=== PATIENT | male | born 1950 | race Caucasian/White ===

== ENCOUNTER 2020-06-05 15:12 | Inpatient (IN) | payer MEDICARE, BC ==
[2020-06-05] MEDS ORDERED: ONDANSETRON HCL INJ/PF 4 MG/2 ML SDV IV ONE (15:35)
[2020-06-05] MEDS ORDERED: MORPHINE SULFATE 10 MG/ML INJ IV ONE (15:35)
--- NOTE | 2020-06-05 15:54 | ER Document Report ---
Entered by KIRIT RUDD SCRIBE 06/05/20 1533 Acting as scribe for:CALLUM OCHOA DO ED Hip Pain/Injury - General Chief Complaint: Hip Pain Stated Complaint: RIGHT HIP PAIN Time Seen by Provider: 06/05/20 15:21 Information source: Patient Notes: This 70-year-old male patient presents to the emergency department today with complaints of right hip pain resulting from a fall last night. Patient states that he was attempting to take a shower when he slipped and fell. Patient reports that the shower was recently cleaned and he thinks there was residue left over causing him to slip. Patient complains of right hip pain and his right lower extremity is shortened and externally rotated. Patient is on Eliquis and did hit his head. There was no loss of consciousness. - Related Data Allergies/Adverse Reactions: indomethacin [From Indocin] Allergy (Unknown, Verified 06/05/20 16:12) Past Medical History - General Information source: Patient - Social History Smoking Status: Former Smoker Cigarette use (# per day): No Frequency of alcohol use: None Drug Abuse: None Lives with: Family Family History: Reviewed & Not Pertinent - Past Medical History Cardiac Medical History: Reports: Hx Atrial Fibrillation, Hx Hypertension Review of Systems - Review of Systems Constitutional: See HPI, Other - fall EENT: No symptoms reported Cardiovascular: No symptoms reported Respiratory: No symptoms reported Gastrointestinal: No symptoms reported Genitourinary: No symptoms reported Male Genitourinary: No symptoms reported Musculoskeletal: See HPI, Joint pain - right hip Skin: No symptoms reported Hematologic/Lymphatic: No symptoms reported Neurological/Psychological: No symptoms reported -: Yes All other systems reviewed and negative Physical Exam - Vital signs Vitals: Temp Pulse Resp BP Pulse Ox 97.5 F 113 H 19 147/92 H 93 06/05/20 15:20 06/05/20 15:20 06/05/20 15:20 06/05/20 15:20 06/05/20 15:20 - Notes Notes: Physical Exam: General: Alert, appears uncomfortable. HEENT: Normocephalic. Right parietal hematoma. PERRL. Extraocular movements intact. Oropharynx clear. Neck: Supple. Non-tender. Respiratory: No respiratory distress. Clear and equal breath sounds bilaterally. Cardiovascular: Regular rate and rhythm. Abdominal: Obese. Non-tender. No distension. Normal Bowel Sounds. Back: No gross abnormalities. Extremities: Moves all four extremities. Upper extremities: Normal inspection. Normal ROM. Lower extremities: Right lower extremity is shortened and externally rotated. There is right hip tenderness with palpation. Neurological: Normal cognition. AAOx4. Normal speech. Psychological: Normal affect. Normal Mood. Skin: Warm. Dry. Normal color. Course - Re-evaluation Re-evalutation: 06/05/20 17:21 MDM 70 year old male fell at rental home last evening. Nondisplaced right intertrochanteric femur fracture. Also struck right parietal scalp and I have noted a small contusion to the scalp as a result. Due to that and the xarelto he takes for a fib and the likely tortuous and perhaps weak bridging veins he has a decision was made to obtain a noncontrast ct of his head to look for an occult injury such as a small sdh. He, thankfully, showed no acute abnormality on the ct. I have discussed the pt with Dr. Hong and the hospitalist team. Due to the comorbidities, the hospitalist team has been consulted to admit the pt. - Vital Signs Vital signs: Temp Pulse Resp BP Pulse Ox 97.5 F 113 H 19 147/92 H 93 06/05/20 15:20 06/05/20 15:20 06/05/20 15:20 06/05/20 15:20 06/05/20 15:20 - Laboratory Result Diagrams: 06/05/20 15:50 06/05/20 15:50 Laboratory results interpreted by me: 06/05/20 06/05/20 15:50 15:50 PT 18.1 H Glucose 156 H Total Bilirubin 2.6 H - Diagnostic Test Radiology reviewed: Image reviewed, Reports reviewed - EKG Interpretation by Me EKG shows normal: Sinus rhythm Rate: Normal Rhythm: NSR - NSR Nl [place] No st elevation or depression repolarization abnormality my interpretation. Discharge - Discharge Clinical Impression: Intertrochanteric fracture of right hip Qualifiers: Encounter type: initial encounter Fracture type: closed Fracture alignment: nondisplaced Qualified Code(s): S72.144A - Nondisplaced intertrochanteric fracture of right femur, initial encounter for closed fracture Atrial fibrillation Qualifiers: Atrial fibrillation type: unspecified Qualified Code(s): I48.91 - Unspecified atrial fibrillation Fall Qualifiers: Encounter type: initial encounter Qualified Code(s): W19.XXXA - Unspecified fall, initial encounter Contusion of scalp Qualifiers: Encounter type: initial encounter Qualified Code(s): S00.03XA - Contusion of scalp, initial encounter Condition: Stable Disposition: ADMITTED OBSERVATION Admitting Provider: [facility] (Hospitalist) Unit Admitted: Telemetry I personally performed the services described in the documentation, reviewed and edited the documentation which was dictated to the scribe in my presence, and it accurately records my words and actions.
--- NOTE | 2020-06-05 15:58 | RADIOLOGY REPORT (SQ) ---
EXAM DESCRIPTION: CHEST SINGLE VIEW IMAGES COMPLETED DATE/TIME: 06/05/2020 2:41 pm REASON FOR STUDY: pre op COMPARISON: None. EXAM PARAMETERS: NUMBER OF VIEWS: One view. TECHNIQUE: Single frontal radiographic view of the chest acquired. RADIATION DOSE: NA LIMITATIONS: None. FINDINGS: LUNGS AND PLEURA: There are patchy perihilar opacities and a small left pleural effusion. No pneumothorax. MEDIASTINUM AND HILAR STRUCTURES: No masses. Contour normal. HEART AND VASCULAR STRUCTURES: Moderate cardiomegaly. Moderate pulmonary edema. Postoperative barney es of prior CABG. BONES: No acute findings. HARDWARE: None in the chest. OTHER: No other significant finding. IMPRESSION: Moderate pulmonary edema. Small left effusion. TECHNICAL DOCUMENTATION: JOB ID: [id number] 2010 [employer]- All Rights Reserved Reading location - IP/workstation name: [email or web address]
--- NOTE | 2020-06-05 15:59 | RADIOLOGY REPORT (SQ) ---
EXAM DESCRIPTION: HIP RIGHT AP/LATERAL IMAGES COMPLETED DATE/TIME: 06/05/2020 2:41 pm REASON FOR STUDY: bed 1 s/p fall right hip tenderness COMPARISON: None. NUMBER OF VIEWS: Two views. TECHNIQUE: AP pelvis and additional frog-leg view of the right hip. LIMITATIONS: None. FINDINGS: MINERALIZATION: Normal. RIGHT HIP: No fracture or dislocation. No worrisome bone lesions. LEFT HIP: No fracture or dislocation. No worrisome bone lesions. PUBIS AND ISCHIUM: No fracture. PELVIS: No fracture. SACRUM: No fracture or dislocation. No worrisome bone lesions. LOWER LUMBAR SPINE: No fracture or dislocation. No worrisome bone lesions. There is degenerative dis c disease. SOFT TISSUES: No findings. OTHER: No other significant finding. IMPRESSION: No acute fracture or dislocation of the right hip or pelvis. TECHNICAL DOCUMENTATION: JOB ID: [id number] 2010 [employer]- All Rights Reserved Reading location - IP/workstation name: [email or web address]
[2020-06-05 16:19] LABS: ALBUMIN 3.8 g/dL (3.5-5.0); ALKALINE PHOSPHATASE 115 U/L (38-126); ANION GAP 8 (5-19); ASPARTATE AMINO TRANSFERASE 43 U/L (17-59); BILIRUBIN,DIRECT 0.3 mg/dL (0.0-0.4); BILIRUBIN,TOTAL 2.6 mg/dL (0.2-1.3); BLOOD UREA NITROGEN 20 mg/dL (7-20); CALCIUM 8.6 mg/dL (8.4-10.2); CARBON DIOXIDE 26 mmol/L (22-30); CHLORIDE 104 mmol/L (98-107); GLUCOSE 156 mg/dL (75-110); POTASSIUM 4.3 mmol/L (3.6-5.0); TOTAL PROTEIN 6.7 g/dL (6.3-8.2)
--- NOTE | 2020-06-05 16:44 | RADIOLOGY REPORT (SQ) ---
EXAM DESCRIPTION: CT HEAD WITHOUT IMAGES COMPLETED DATE/TIME: 06/05/2020 3:29 pm REASON FOR STUDY: fall/ injury/ Eliquis COMPARISON: None. TECHNIQUE: Axial images acquired through the brain without intravenous contrast. Images reviewed wi th bone, brain and subdural windows. Additional sagittal and coronal reconstructions were generated. Images stored on PACS. All CT scanners at this facility use dose modulation, iterative reconstruction, and/or weight based d osing when appropriate to reduce radiation dose to as low as reasonably achievable (ALARA). [facility]: Dose Right [facility]: CareDose [facility]: Dose Right [facility]: Teradose 4D [facility]: Smart [employer] RADIATION DOSE: CT Rad equipment meets quality standard of care and radiation dose reduction techniq ues were employed. CTDIvol: 53.2 mGy. DLP: 1070 mGy-cm. mGy. LIMITATIONS: None. FINDINGS: VENTRICLES: Normal size and contour. CEREBRUM: No masses. No hemorrhage. No midline shift. No evidence for acute infarction. Normal gra y/white matter differentiation. No areas of low density in the white matter. There is extensive intr acranial atherosclerosis. CEREBELLUM: No masses. No hemorrhage. No alteration of density. No evidence for acute infarction. EXTRAAXIAL SPACES: No fluid collections. No masses. ORBITS AND GLOBE: No intra- or extraconal masses. Normal contour of globe without masses. CALVARIUM: No fracture. PARANASAL SINUSES: No fluid or mucosal thickening. SOFT TISSUES: No mass or hematoma. OTHER: No other significant finding. IMPRESSION: 1. No acute intracranial hemorrhage, mass, or evidence of acute territorial infarct. 2. Extensive intracranial atherosclerosis. EVIDENCE OF ACUTE STROKE: NO. COMMENT: Quality ID # [id number]: Final reports with documentation of one or more dose reduction techniques (e.g., Automated exposure control, adjustment of the mA and/or kV according to patient size, use of iterative reconstruction technique) TECHNICAL DOCUMENTATION: JOB ID: [id number] 2010 [employer]- All Rights Reserved Reading location - IP/workstation name: [id number]
--- NOTE | 2020-06-05 16:50 | RADIOLOGY REPORT (SQ) ---
EXAM DESCRIPTION: CT PELVIS WITHOUT IMAGES COMPLETED DATE/TIME: 06/05/2020 3:29 pm REASON FOR STUDY: right hip pain COMPARISON: Right hip radiograph same date. TECHNIQUE: CT scan of the pelvis performed without intravenous or oral contrast. Images reviewed wi th soft tissue and bone windows. Reconstructed coronal and sagittal MPR images reviewed. All images stored on PACS. All CT scanners at this facility use dose modulation, iterative reconstruction, and/or weight based d osing when appropriate to reduce radiation dose to as low as reasonably achievable (ALARA). [facility]: Dose Right [facility]: CareDose [facility]: Dose Right [facility]: Teradose 4D [facility]: Smart [employer] RADIATION DOSE: CT Rad equipment meets quality standard of care and radiation dose reduction techniq ues were employed. CTDIvol: 24.7 mGy. DLP: 887 mGy-cm. mGy. LIMITATIONS: None. FINDINGS: PELVIC BONES: No acute fracture. Well demarcated sclerotic bone lesion in the left pubic symphysis probably a bone island. No suspicious bone lesions. . VISUALIZED SPINE: No acute findings. HIP(S): There is an acute nondisplaced intratrochanteric fracture of the right femur with mild displa cement of the greater trochanter. No significant angulation or displacement. Mild osteoarthritis bi lateral femoroacetabular joints. PELVIC SOFT TISSUES: Prostate gland is enlarged measuring 6.6 x 6 cm. No pelvic adenopathy. Colonic diverticulosis without evidence of diverticulitis. No free fluid in the pelvis. EXTRAPELVIC SOFT TISSUES: No significant findings. OTHER: No other significant finding. IMPRESSION: 1. Acute minimally displaced intratrochanteric fracture right femur. 2. Enlarged prostate gland. TECHNICAL DOCUMENTATION: JOB ID: [id number] Quality ID # [id number]: Final reports with documentation of one or more dose reduction techniques (e.g., Au tomated exposure control, adjustment of the mA and/or kV according to patient size, use of iterative reconstruction technique) 2010 [employer]- All Rights Reserved Reading location - IP/workstation name: [email or web address]
[2020-06-05 17:07] LABS: INTERNATIONAL RATION (INR) 1.48; PROTHROMBIN TIME 18.1 SEC (11.4-15.4)
[2020-06-05] MEDS ORDERED: ACETAMINOPHEN 325 MG TABLET PO PRN (17:57)
[2020-06-05 18:01] LABS: ABSOLUTE EOSINOPHILS # (AUTO) 0.2 10^3/uL (0.0-0.6); ABSOLUTE LYMPHOCYTES (AUTO) 0.7 10^3/uL (0.5-4.7); ABSOLUTE MONOCYTES (AUTO) 0.7 10^3/uL (0.1-1.4); ABSOLUTE NEUT (AUTO) 7.4 10^3/uL (1.7-8.2); BASOPHILS % (AUTO) 0.4 % (0-2); EOSINOPHILS % (AUTO) 1.8 % (0-6); HEMATOCRIT 41.8 % (37.9-51.0); HEMOGLOBIN 14.3 g/dL (13.5-17.0); MEAN CORPUSCULAR HEMOGLOBIN 32.9 pg (27.0-33.4); MEAN CORPUSCULAR HGB CONC 34.3 g/dL (32.0-36.0); MEAN CORPUSCULAR VOLUME 96 fl (80-97); MONOCYTES % (AUTO) 7.4 % (3-13); RED BLOOD COUNT 4.35 10^6/uL (4.35-5.55); RED CELL DISTRIBUTION WIDTH 15.9 % (11.5-14.0); SEGMENTED NEUTROPHILS % (AUTO) 82.4 % (42-78); TOTAL CELLS COUNTED % (AUTO) 100 %; WHITE BLOOD COUNT 8.9 10^3/uL (4.0-10.5)
[2020-06-05 18:31] LABS: PLATELET COUNT 70 10^3/uL (150-450)
[2020-06-05] MEDS: CEFAZOLIN 2 GM/D5W RTU 2 GM/50 ML RTUPB IV SCH (19:00)
--- NOTE | 2020-06-05 19:15 | EKG REPORT ---
SEVERITY:- ABNORMAL ECG - ATRIAL FIBRILLATION. LEFT POST. FASCICULAR BLOCK NONSPECIFIC LATERAL ST-T CHANGES. : Confirmed by: Jacob Wilson MD 05-Jun-2020 19:15:05
--- NOTE | 2020-06-05 19:37 | PDOC H&P ---
History of Present Illness Admission Date/PCP: 06/05/20 18:05 Patient complains of: Patient presents to the ED after falling in the early this morning with complaints of right hip pain History of Present Illness: LINDA HUSTON is a 70 year old male who is on vacation in the area. Early this morning the patient got out of bed to take a shower and while in the shower slipped and fell onto his right side hitting his head, right shoulder, and right hip. He denies any LOC. He states that he immediately noticed significant right hip pain which prevented him from being able to move for a period of several minutes. He ultimately crawled out of the shower and and notified his of his injury. With the help of his and several friends he was able to get up off of the floor. EMS was activated and the patient was brought to the ED where he underwent a CT of the head which revealed no acute intracranial process. Additionally, he underwent an x-ray of the hip/pelvis did not reveal an acute fracture or dislocation of the right hip or pelvis. Subsequently he underwent a CT of the pelvis which did reveal an acute minimally displaced intertrochanteric fracture of the right femur. A surgical consult was requested in the ED and the hospitalist team was consulted for admission. Past Medical History Cardiac Medical History: Reports: Atrial Fibrillation, Congestive Heart Failure, Hyperlipidema, Hypertension, Other - CAD, s/p CABG x4 in 2016 Pulmonary Medical History: Reports: Sleep Apnea - Patient uses CPAP EENT Medical History: Reports: None Neurological Medical History: Reports: None Endocrine Medical History: Reports: Obesity Renal/ Medical History: Reports: None Malignancy Medical History: Reports: Renal (Kidney) Cancer - S/p left nephrectomy GI Medical History: Reports: None Musculoskeltal Medical History: Reports: Gout Psychiatric Medical History: Reports: Depression Traumatic Medical History: Reports: Other - Traumatic right hip fracture this hospitalization Hematology: Reports: None Infectious Medical History: Reports: None Past Surgical History Past Surgical History: Reports: Appendectomy, Coronary Artery Bypass Graft, Other - Left nephrectomy Social History Lives with: Family Smoking Status: Former Smoker Electronic Cigarette use?: No Frequency of Alcohol Use: None Hx Recreational Drug Use: No Drugs: None Hx Prescription Drug Abuse: No - Advance Directive Resuscitation Status: Full Code Family History Family History: Reviewed & Not Pertinent Parental Family History Reviewed: Yes Children Family History Reviewed: Yes Sibling(s) Family History Reviewed.: Yes Medication/Allergy Allergies/Adverse Reactions: indomethacin [From Indocin] Allergy (Unknown, Verified 06/05/20 16:12) Review of Systems Constitutional: ABSENT: anorexia, chills, fatigue, fever(s), headache(s), night sweats, weakness, weight loss Eyes: ABSENT: visual disturbances Ears: ABSENT: hearing changes Nose, Mouth, and Throat: ABSENT: headache(s), mouth pain, sore throat, vertigo Cardiovascular: ABSENT: chest pain, dyspnea on exertion, edema, orthropnea, pa lpitations Respiratory: ABSENT: cough, dyspnea, hemoptysis, sputum Gastrointestinal: ABSENT: abdominal pain, coffee ground emesis, constipation, diarrhea, dysphagia, heartburn, hematemesis, hematochezia, melena, nausea, vomiting Genitourinary: ABSENT: difficulty urinating, dysuria, hematuria Musculoskeletal: PRESENT: other - Right shoulder with 2 cm x 2 cm ecchymotic area. Right hip pain. ABSENT: back pain, muscle weakness Integumentary: ABSENT: diaphoresis, lesions, pruritus, rash Neurological: PRESENT: numbness - Patient reports intermittent numbness of the right fingers. ABSENT: abnormal gait, abnormal movements, abnormal speech, confusion, focal weakness, frequent falls, lack of coordination, memory loss, syncope, tremor(s), vertigo, weakness Psychiatric: PRESENT: depression Endocrine: ABSENT: cold intolerance, heat intolerance, polydipsia, polyphagia, polyuria Hematologic/Lymphatic: ABSENT: easy bleeding, easy bruising Physical Exam Vital Signs: Temp Pulse Resp BP Pulse Ox 97.5 F 113 H 19 147/92 H 93 06/05/20 15:20 06/05/20 15:20 06/05/20 15:20 06/05/20 15:20 06/05/20 15:20 Intake & Output 06/04/20 06/05/20 06/06/20 06:59 06:59 06:59 Weight 120 kg General appearance: PRESENT: no acute distress, cooperative, obese, well- developed, well-nourished Head exam: PRESENT: atraumatic, normocephalic Eye exam: PRESENT: conjunctiva pink, EOMI, PERRLA. ABSENT: periorbital swell ing, scleral icterus Ear exam: ABSENT: bleeding, drainage Mouth exam: PRESENT: moist, tongue midline Neck exam: ABSENT: carotid bruit, JVD, thyromegaly, tracheal deviation Respiratory exam: PRESENT: clear to auscultation matthew, symmetrical, unlabored. ABSENT: accessory muscle use, chest wall tenderness Cardiovascular exam: PRESENT: irregular rhythm, +S1, +S2. ABSENT: rubs Pulses: PRESENT: normal radial pulses, +2 pedal pulses bilateral Vascular exam: PRESENT: normal capillary refill GI/Abdominal exam: PRESENT: normal bowel sounds, soft. ABSENT: tenderness Rectal exam: PRESENT: deferred Extremities exam: PRESENT: joint swelling, other - Right hip with minimal edema. ABSENT: calf tenderness Neurological exam: PRESENT: alert, awake, oriented to person, oriented to place, oriented to time, oriented to situation, CN II-XII grossly intact Skin exam: PRESENT: intact, normal color, warm Results Laboratory Results: 06/05/20 17:53 06/05/20 15:50 06/05/20 06/05/20 06/05/20 15:50 15:50 16:47 WBC Cancelled Cancelled RBC Cancelled Cancelled Hgb Cancelled Cancelled Hct Cancelled Cancelled MCV Cancelled Cancelled MCH Cancelled Cancelled MCHC Cancelled Cancelled RDW Cancelled Cancelled Plt Count Cancelled Cancelled Seg Neutrophils % Cancelled Cancelled Sodium 137.6 Potassium 4.3 Chloride 104 Carbon Dioxide 26 Anion Gap 8 BUN 20 Creatinine 1.03 Est GFR ( Amer) > 60 Glucose 156 H Calcium 8.6 Total Bilirubin 2.6 H AST 43 Alkaline Phosphatase 115 Total Protein 6.7 Albumin 3.8 06/05/20 17:53 WBC 8.9 RBC 4.35 Hgb 14.3 Hct 41.8 MCV 96 MCH 32.9 MCHC 34.3 RDW 15.9 H Plt Count 70 L Seg Neutrophils % 82.4 H Sodium Potassium Chloride Carbon Dioxide Anion Gap BUN Creatinine Est GFR ( Amer) Glucose Calcium Total Bilirubin AST Alkaline Phosphatase Total Protein Albumin Impressions: Hip/Pelvis X-Ray 06/05/20 00:00 IMPRESSION: No acute fracture or dislocation of the right hip or pelvis. Chest X-Ray 06/05/20 15:33 IMPRESSION: Moderate pulmonary edema. Small left effusion. Head CT 06/05/20 15:34 IMPRESSION: 1. No acute intracranial hemorrhage, mass, or evidence of acute territorial infarct. 2. Extensive intracranial atherosclerosis. EVIDENCE OF ACUTE STROKE: NO. Pelvis CT 06/05/20 16:00 IMPRESSION: 1. Acute minimally displaced intratrochanteric fracture right femur. 2. Enlarged prostate gland. Assessment and Plan - Diagnosis (1) Intertrochanteric fracture of right femur Qualifiers: Encounter type: initial encounter Fracture type: closed Fracture alignment: nondisplaced Qualified Code(s): S72.144A - Nondisplaced intertrochanteric fracture of right femur, initial encounter for closed fracture Is this a current diagnosis for this admission?: Yes Plan: Surgery consulted, plan for OR in a.m. (2) CAD (coronary artery disease) Is this a current diagnosis for this admission?: Yes Plan: Patient s/p CABG x4 in 2016 Denies chest pain Continue ASA 81 mg p.o. daily (3) HTN (hypertension) Is this a current diagnosis for this admission?: Yes Plan: Adequate BP control Continue amlodipine 5 mg p.o. daily Continue metoprolol tartrate 50 mg p.o. twice daily Continue losartan 50 mg p.o. twice daily Patient takes prazosin 2 mg p.o. twice daily which is nonformulary, will hold off a livia at this time Continue furosemide 40 mg daily Continue potassium chloride 20 mEq p.o. daily (4) Dyslipidemia Is this a current diagnosis for this admission?: Yes Plan: Continue atorvastatin 10 mg p.o. daily (5) HOWARD (obstructive sleep apnea) Is this a current diagnosis for this admission?: Yes Plan: Patient uses CPAP at at bedtime Continue CPAP with patient's home settings (6) Gout Is this a current diagnosis for this admission?: Yes Plan: Continue allopurinol 300 mg p.o. twice daily (7) Depression Is this a current diagnosis for this admission?: Yes Plan: Continue escitalopram 20 mg p.o. daily - Plan Summary Summary: Patient is admitted to the hospitalist service with a consult to orthopedic surgery. He is scheduled to go to the OR on the morning of 06/06/2020. Pharmacy has not completed a med reconciliation however, I have reviewed the patient's medication list with both he and his and have continued his chronic medications with the exception of his apixaban which is being held in preparation for surgery. - Time Time Spent with patient: 35 or more minutes Medications reviewed and adjusted accordingly: Yes Anticipated discharge: Home
--- NOTE | 2020-06-05 20:25 | RADIOLOGY REPORT (SQ) ---
EXAM DESCRIPTION: XR SHOULDER 2 OR MORE VIEWS COMPLETED DATE/TME: 06/05/2020 00:00 CLINICAL HISTORY: 70 years Male Fall with trauma COMPARISON: None. TECHNIQUE: RIGHT shoulder three view FINDINGS: Bony demineralization. Degenerative changes at the glenohumeral joint. No acute fractures or dislocations identified. No osseous destructive lesions. Acromioclavicular joint appears maintained. IMPRESSION: No acute fracture or dislocation identified.
[2020-06-05 20:39] LABS: APPEARANCE,URINE CLEAR; BILIRUBIN,URINE NEGATIVE (NEGATIVE); COLOR,URINE DARK YELLOW; GLUCOSE, URINE NEGATIVE (NEGATIVE); KETONES,URINE NEGATIVE (NEGATIVE); LEUKOCYTE ESTERASE,URINE NEGATIVE (NEGATIVE); NITRITE,URINE NEGATIVE (NEGATIVE); PROTEIN,URINE 100 mg/dL (NEGATIVE); URINE SPECIFIC GRAVITY 1.024
--- NOTE | 2020-06-05 21:13 | EKG REPORT ---
SEVERITY:- ABNORMAL ECG - ATRIAL FIBRILLATION NONSPECIFIC T ABNORMALITIES, ANT-LAT LEADS BORDERLINE PROLONGED QT INTERVAL : Confirmed by: Jacob Wilson MD 05-Jun-2020 21:12:20
[2020-06-05] MEDS: LOSARTAN POTASSIUM 50 MG TABLET PO SCH (21:55)
[2020-06-05] MEDS: ATORVASTATIN CALCIUM 10 MG TABLET PO SCH (21:55)
[2020-06-05] MEDS: METOPROLOL TARTRATE 50 MG TABLET PO SCH (21:55)
[2020-06-06] MEDS: CEFAZOLIN 2 GM/D5W RTU 2 GM/50 ML RTUPB IV SCH ×2 (01:22→05:28)
[2020-06-06] MEDS: PANTOPRAZOLE SODIUM 40 MG TABLET.DR PO SCH (05:28)
[2020-06-06 06:53] LABS: ABSOLUTE BASOPHILS # (AUTO) 0.1 10^3/uL (0.0-0.2); ABSOLUTE EOSINOPHILS # (AUTO) 0.5 10^3/uL (0.0-0.6); ABSOLUTE LYMPHOCYTES (AUTO) 0.9 10^3/uL (0.5-4.7); ABSOLUTE MONOCYTES (AUTO) 0.6 10^3/uL (0.1-1.4); ABSOLUTE NEUT (AUTO) 7.7 10^3/uL (1.7-8.2); BASOPHILS % (AUTO) 0.7 % (0-2); EOSINOPHILS % (AUTO) 5.1 % (0-6); HEMATOCRIT 43.5 % (37.9-51.0); HEMOGLOBIN 14.7 g/dL (13.5-17.0); MEAN CORPUSCULAR HEMOGLOBIN 32.8 pg (27.0-33.4); MEAN CORPUSCULAR HGB CONC 33.8 g/dL (32.0-36.0); MEAN CORPUSCULAR VOLUME 97 fl (80-97); MONOCYTES % (AUTO) 6.1 % (3-13); RED BLOOD COUNT 4.48 10^6/uL (4.35-5.55); RED CELL DISTRIBUTION WIDTH 15.9 % (11.5-14.0); SEGMENTED NEUTROPHILS % (AUTO) 79.1 % (42-78); TOTAL CELLS COUNTED % (AUTO) 100 %; WHITE BLOOD COUNT 9.8 10^3/uL (4.0-10.5)
[2020-06-06 06:55] LABS: INTERNATIONAL RATION (INR) 1.33; PROTHROMBIN TIME 16.6 SEC (11.4-15.4)
[2020-06-06 06:56] LABS: PARTIAL THROMBOPLASTIN TIME 31.7 SEC (23.5-35.8)
[2020-06-06 07:15] LABS: ANION GAP 6 (5-19); BLOOD UREA NITROGEN 23 mg/dL (7-20); CALCIUM 8.6 mg/dL (8.4-10.2); CARBON DIOXIDE 28 mmol/L (22-30); CHLORIDE 105 mmol/L (98-107); GLUCOSE 127 mg/dL (75-110)
[2020-06-06 07:41] LABS: PLATELET COUNT 78 10^3/uL (150-450)
[2020-06-06] MEDS: CEFAZOLIN SODIUM 2 GM in DEXTROSE 5%-WATER 100 ML IV SCH ×3 (09:39→21:59)
[2020-06-06] MEDS ORDERED: FUROSEMIDE 40 MG TABLET PO SCH (10:00)
[2020-06-06] MEDS ORDERED: FUROSEMIDE INJ/PF 40 MG/4 ML SDV IV ONE (10:50)
--- NOTE | 2020-06-06 10:54 | PDOC PROGRESS REPORT ---
Subjective Progress Note for:: 06/06/20 Subjective:: No complaints. Patient remains on CPAP this a.m. Reason For Visit: RIGHT HIP FRACTURE Physical Exam Vital Signs: Temp Pulse Resp BP Pulse Ox 97.7 F 55 L 5 L 143/82 H 90 L 06/06/20 08:24 06/06/20 08:24 06/06/20 09:13 06/06/20 08:24 06/06/20 09:13 Intake & Output 06/05/20 06/06/20 06/07/20 06:59 06:59 06:59 Output Total 550 Balance -550 Weight 126.2 kg General appearance: PRESENT: no acute distress, cooperative, well-developed, well-nourished Head exam: PRESENT: atraumatic, normocephalic Eye exam: PRESENT: conjunctiva pink Mouth exam: PRESENT: moist, tongue midline Neck exam: ABSENT: JVD Respiratory exam: PRESENT: clear to auscultation matthew, symmetrical, unlabored. ABSENT: accessory muscle use, rales Cardiovascular exam: PRESENT: irregular rhythm, +S1, +S2 Pulses: PRESENT: normal carotid pulses, normal radial pulses GI/Abdominal exam: PRESENT: normal bowel sounds, soft. ABSENT: distended, tend erness Rectal exam: PRESENT: deferred Extremities exam: PRESENT: full ROM, other - Trace pretibial edema bilaterally Musculoskeletal exam: PRESENT: full ROM Neurological exam: PRESENT: alert, awake, oriented to person, oriented to place, oriented to time, oriented to situation, CN II-XII grossly intact Psychiatric exam: PRESENT: appropriate affect, normal mood. ABSENT: agitated, anxious Skin exam: PRESENT: dry, normal color, warm Results Laboratory Results: 06/06/20 06:19 06/06/20 06:19 06/05/20 06/05/20 06/05/20 15:50 15:50 16:47 WBC Cancelled Cancelled RBC Cancelled Cancelled Hgb Cancelled Cancelled Hct Cancelled Cancelled MCV Cancelled Cancelled MCH Cancelled Cancelled MCHC Cancelled Cancelled RDW Cancelled Cancelled Plt Count Cancelled Cancelled Seg Neutrophils % Cancelled Cancelled Sodium 137.6 Potassium 4.3 Chloride 104 Carbon Dioxide 26 Anion Gap 8 BUN 20 Creatinine 1.03 Est GFR ( Amer) > 60 Glucose 156 H Calcium 8.6 Total Bilirubin 2.6 H AST 43 Alkaline Phosphatase 115 Total Protein 6.7 Albumin 3.8 Urine Color Urine Appearance Urine pH Ur Specific [place] Urine Protein Urine Glucose (UA) Urine Ketones Urine Blood Urine Nitrite Ur Leukocyte Esterase Urine WBC (Auto) Urine RBC (Auto) 06/05/20 06/05/20 06/06/20 17:53 20:24 06:19 WBC 8.9 RBC 4.35 Hgb 14.3 Hct 41.8 MCV 96 MCH 32.9 MCHC 34.3 RDW 15.9 H Plt Count 70 L Seg Neutrophils % 82.4 H Sodium 139.4 Potassium 4.0 Chloride 105 Carbon Dioxide 28 Anion Gap 6 BUN 23 H Creatinine 1.04 Est GFR ( Amer) > 60 Glucose 127 H Calcium 8.6 Total Bilirubin AST Alkaline Phosphatase Total Protein Albumin Urine Color DARK YELLOW Urine Appearance CLEAR Urine pH 5.0 Ur Specific [place] 1.024 Urine Protein 100 H Urine Glucose (UA) NEGATIVE Urine Ketones NEGATIVE Urine Blood NEGATIVE Urine Nitrite NEGATIVE Ur Leukocyte Esterase NEGATIVE Urine WBC (Auto) 0 Urine RBC (Auto) 1 06/06/20 06:19 WBC 9.8 RBC 4.48 Hgb 14.7 Hct 43.5 MCV 97 MCH 32.8 MCHC 33.8 RDW 15.9 H Plt Count 78 L Seg Neutrophils % 79.1 H Sodium Potassium Chloride Carbon Dioxide Anion Gap BUN Creatinine Est GFR ( Amer) Glucose Calcium Total Bilirubin AST Alkaline Phosphatase Total Protein Albumin Urine Color Urine Appearance Urine pH Ur Specific [place] Urine Protein Urine Glucose (UA) Urine Ketones Urine Blood Urine Nitrite Ur Leukocyte Esterase Urine WBC (Auto) Urine RBC (Auto) Impressions: Hip/Pelvis X-Ray 06/05/20 00:00 IMPRESSION: No acute fracture or dislocation of the right hip or pelvis. Shoulder X-Ray 06/05/20 00:00 IMPRESSION: No acute fracture or dislocation identified. Chest X-Ray 06/05/20 15:33 IMPRESSION: Moderate pulmonary edema. Small left effusion. Head CT 06/05/20 15:34 IMPRESSION: 1. No acute intracranial hemorrhage, mass, or evidence of acute territorial infarct. 2. Extensive intracranial atherosclerosis. EVIDENCE OF ACUTE STROKE: NO. Pelvis CT 06/05/20 16:00 IMPRESSION: 1. Acute minimally displaced intratrochanteric fracture right femur. 2. Enlarged prostate gland. Assessment and Plan - Diagnosis (1) Intertrochanteric fracture of right femur Qualifiers: Encounter type: initial encounter Fracture type: closed Fracture alignment: nondisplaced Qualified Code(s): S72.144A - Nondisplaced intertrochanteric fracture of right femur, initial encounter for closed fracture Is this a current diagnosis for this admission?: Yes Plan: Surgery on hold at this time, anesthesia feels that patient needs to be tuned up prior to going to the OR Allow patient to eat (2) CAD (coronary artery disease) Is this a current diagnosis for this admission?: Yes Plan: Patient s/p CABG x4 in 2015 Denies chest pain Continue ASA 81 mg p.o. daily Check echocardiogram, if abnormal will request cardiology consultation (3) Pulmonary edema Qualifiers: Chronicity: acute Qualified Code(s): J81.0 - Acute pulmonary edema Is this a current diagnosis for this admission?: Yes Plan: CXR from 06/05/1960 reveals pulmonary edema Repeat CXR now Check BNP Check echocardiogram Change Lasix to IV (40 mg daily) Continue potassium chloride 20 mEq p.o. daily (4) HTN (hypertension) Is this a current diagnosis for this admission?: Yes Plan: Adequate BP control Continue amlodipine 5 mg p.o. daily Continue metoprolol tartrate 50 mg p.o. twice daily Continue losartan 50 mg p.o. twice daily Patient takes prazosin 2 mg p.o. twice daily which is nonformulary, will hold off a livia at this time (5) Dyslipidemia Is this a current diagnosis for this admission?: Yes Plan: Continue atorvastatin 10 mg p.o. daily (6) HOWARD (obstructive sleep apnea) Is this a current diagnosis for this admission?: Yes Plan: Patient uses CPAP at at bedtime Continue CPAP with patient's home settings (7) Gout Is this a current diagnosis for this admission?: Yes Plan: Continue allopurinol 300 mg p.o. twice daily (8) Depression Is this a current diagnosis for this admission?: Yes Plan: Continue escitalopram 20 mg p.o. daily - Time Time Spent with patient: 25-34 minutes Anticipated discharge: Home
[2020-06-06] MEDS: ALLOPURINOL 300 MG TABLET PO SCH ×2 (12:05→19:04)
[2020-06-06] MEDS: POTASSIUM CHLORIDE 10 MEQ TABLET.ER PO SCH (12:08)
[2020-06-06] MEDS: ASPIRIN 81 MG TABLET, ENT COATED PO SCH (12:08)
[2020-06-06] MEDS: METOPROLOL TARTRATE 50 MG TABLET PO SCH ×2 (12:09→22:00)
[2020-06-06] MEDS: ESCITALOPRAM OXALATE 10 MG TABLET PO SCH (12:09)
[2020-06-06] MEDS: FERROUS SULFATE 325 MG TABLET PO SCH (12:09)
[2020-06-06] MEDS: AMLODIPINE BESYLATE 5 MG TABLET PO SCH (12:09)
[2020-06-06] MEDS: LOSARTAN POTASSIUM 50 MG TABLET PO SCH ×2 (12:09→21:59)
[2020-06-06] MEDS: DOCUSATE SODIUM 100 MG CAPSULE PO SCH (12:10)
--- NOTE | 2020-06-06 12:14 | RADIOLOGY REPORT (SQ) ---
EXAM DESCRIPTION: CHEST SINGLE VIEW IMAGES COMPLETED DATE/TIME: 06/06/2020 12:02 pm REASON FOR STUDY: Pulmonary edema COMPARISON: 06/05/2020 EXAM PARAMETERS: NUMBER OF VIEWS: One view. TECHNIQUE: Single frontal radiographic view of the chest acquired. RADIATION DOSE: NA LIMITATIONS: None. FINDINGS: LUNGS AND PLEURA: Persistent left pleural effusion with left basilar airspace disease. Ov erall aeration is improved. MEDIASTINUM AND HILAR STRUCTURES: No masses. Contour normal. HEART AND VASCULAR STRUCTURES: Heart remains enlarged. No overt failure. BONES: No acute findings. HARDWARE: Sternotomy wires are in place. OTHER: No other significant finding. IMPRESSION: Cardiomegaly. Small left effusion. Vascular congestion has largely resolved. Minimal airspace disease in the left base most likely represents atelectasis. TECHNICAL DOCUMENTATION: JOB ID: [id number] 2010 [employer]- All Rights Reserved Reading location - IP/workstation name: [email or web address]
--- NOTE | 2020-06-06 15:50 | PDOC CONSULTATION ---
Consultation Consult Date: 06/06/20 Provider Consulted: VIKA BARONE JR History of Present Illness Admission Date/PCP: 06/05/20 18:05 History of Present Illness: LINDA HUSTON is a 70 year old male who presents after recent fall at home. He denies presyncopal episode, denies lightheadedness or pain beforehand. He re ports pain after slipping at home in the shower on a slippery floor landing on his right hip sustaining an injury that prevented him from the ability to bear weight. He denies associated injury. Reports pain is localized to the right groin and thigh and constant at rest. Improved with pain medications. Described as aching 7 out of 10. No knee pain right lower extremity weakness or other associated symptom at this time. Past Medical History Cardiac Medical History: Reports: Atrial Fibrillation, Congestive Heart Failure, Hyperlipidema, Hypertension, Other - CAD, s/p CABG x4 in 2016 Pulmonary Medical History: Reports: Sleep Apnea - Patient uses CPAP EENT Medical History: Reports: None Neurological Medical History: Reports: None Endocrine Medical History: Reports: Obesity Renal/ Medical History: Reports: None Malignancy Medical History: Reports: Renal (Kidney) Cancer - S/p left nephrectomy GI Medical History: Reports: None Musculoskeltal Medical History: Reports: Gout Psychiatric Medical History: Reports: Depression Traumatic Medical History: Reports: Other - Traumatic right hip fracture this hospitalization Hematology: Reports: None Infectious Medical History: Reports: None Past Surgical History Past Surgical History: Reports: Appendectomy, Coronary Artery Bypass Graft, Other - Left nephrectomy Social History Lives with: Family Smoking Status: Never Smoker Electronic Cigarette use?: No Frequency of Alcohol Use: None Hx Recreational Drug Use: No Drugs: None Hx Prescription Drug Abuse: No - Advance Directive Resuscitation Status: Full Code Family History Family History: Reviewed & Not Pertinent Parental Family History Reviewed: No Children Family History Reviewed: NA Sibling(s) Family History Reviewed.: NA Medication/Allergy Home Medications: Allopurinol [Zyloprim 300 mg Tablet] 300 mg PO BID 06/06/20 Amlodipine Besylate [Norvasc 5 mg Tablet] 5 mg PO QPM 06/06/20 Apixaban [Eliquis 5 mg Tablet] 5 mg PO Q12 06/06/20 Aspirin [Adult Low Dose Aspirin EC] 81 mg PO DAILY 06/06/20 Atorvastatin Calcium [Lipitor 10 mg Tablet] 10 mg PO QPM 06/06/20 Escitalopram Oxalate [Lexapro 10 mg Tablet] 20 mg PO DAILY 06/06/20 Ferrous Sulfate [Feosol 325 mg Tablet] 325 mg PO DAILY 06/06/20 Furosemide [Lasix 40 mg Tablet] 40 mg PO DAILY 06/06/20 Lansoprazole [Prevacid 30 mg Odt Tablet] 30 mg PO Q6AM 06/06/20 Losartan Potassium [Cozaar 50 mg Tablet] 50 mg PO Q12 06/06/20 Metoprolol Succinate [Toprol Xl 50 mg Tab.sr] 50 mg PO QAM 06/06/20 Potassium Chloride [Klor-Con 10 Meq Tablet ER] 20 meq PO QAM 06/06/20 Prazosin HCl [Minipress] 2 mg PO BID 06/06/20 Allergies/Adverse Reactions: indomethacin [From Indocin] Allergy (Unknown, Verified 06/05/20 16:12) Review of Systems Review of Systems: Constitutional: ABSENT: anorexia, chills, night sweats Cardiovascular: ABSENT: chest pain Respiratory: ABSENT: dyspnea Gastrointestinal: ABSENT: vomiting Genitourinary: ABSENT: dysuria Integumentary: ABSENT: rash Neurological: ABSENT: confusion, memory loss, numbness Psychiatric: ABSENT: hallucinations Hematologic/Lymphatic: ABSENT: easy bleeding Physical Exam Vital Signs: Temp Pulse Resp BP Pulse Ox 97.7 F 55 L 5 L 143/82 H 90 L 06/06/20 08:24 06/06/20 08:24 06/06/20 09:13 06/06/20 08:24 06/06/20 09:13 Intake & Output 06/05/20 06/06/20 06/07/20 06:59 06:59 06:59 Output Total 550 Balance -550 Weight 126.2 kg Physical Exam: General appearance: PRESENT: no acute distress, cooperative, well-nourished Head exam: PRESENT: atraumatic, normocephalic Eye exam: PRESENT: EOMI Ear exam: PRESENT: normal external ear exam Mouth exam: PRESENT: neck supple Neck exam: ABSENT: tracheal deviation Respiratory exam: PRESENT: symmetrical, unlabored. ABSENT: accessory muscle use, wheezes Pulses: PRESENT: normal radial pulses, normal dorsalis pedis pulse Vascular exam: PRESENT: normal capillary refill GI/Abdominal exam: ABSENT: distended, firm Extremities exam: PRESENT: full ROM of bilateral shoulders, elbows wrists, knees, hips and ankles without pain Musculoskeletal exam: PRESENT: full ROM, normal inspection of all 4 extremities aside from that noted below. Neurological exam: PRESENT: alert, awake, oriented to person, oriented to place, oriented to time Psychiatric exam: PRESENT: appropriate affect. ABSENT: agitated Focused psych exam: ABSENT: catatonic Skin exam: PRESENT: intact. ABSENT: dry All as above aside from that noted in the HPI and the following: Right lower extremity -Pulses 2+ distally -Compartments soft -Sensation grossly intact to L3-4-5 S1 -Motor grossly intact to EHL TA gastroc and quad -Right lower extremity shortened externally rotated -Skin intact Results Laboratory Results: 06/06/20 06:19 06/06/20 06:19 06/05/20 06/05/20 06/05/20 15:50 15:50 16:47 WBC Cancelled Cancelled RBC Cancelled Cancelled Hgb Cancelled Cancelled Hct Cancelled Cancelled MCV Cancelled Cancelled MCH Cancelled Cancelled MCHC Cancelled Cancelled RDW Cancelled Cancelled Plt Count Cancelled Cancelled Seg Neutrophils % Cancelled Cancelled Sodium 137.6 Potassium 4.3 Chloride 104 Carbon Dioxide 26 Anion Gap 8 BUN 20 Creatinine 1.03 Est GFR ( Amer) > 60 Glucose 156 H Calcium 8.6 Total Bilirubin 2.6 H AST 43 Alkaline Phosphatase 115 Total Protein 6.7 Albumin 3.8 Urine Color Urine Appearance Urine pH Ur Specific [place] Urine Protein Urine Glucose (UA) Urine Ketones Urine Blood Urine Nitrite Ur Leukocyte Esterase Urine WBC (Auto) Urine RBC (Auto) 06/05/20 06/05/20 06/06/20 17:53 20:24 06:19 WBC 8.9 RBC 4.35 Hgb 14.3 Hct 41.8 MCV 96 MCH 32.9 MCHC 34.3 RDW 15.9 H Plt Count 70 L Seg Neutrophils % 82.4 H Sodium 139.4 Potassium 4.0 Chloride 105 Carbon Dioxide 28 Anion Gap 6 BUN 23 H Creatinine 1.04 Est GFR ( Amer) > 60 Glucose 127 H Calcium 8.6 Total Bilirubin AST Alkaline Phosphatase Total Protein Albumin Urine Color DARK YELLOW Urine Appearance CLEAR Urine pH 5.0 Ur Specific [place] 1.024 Urine Protein 100 H Urine Glucose (UA) NEGATIVE Urine Ketones NEGATIVE Urine Blood NEGATIVE Urine Nitrite NEGATIVE Ur Leukocyte Esterase NEGATIVE Urine WBC (Auto) 0 Urine RBC (Auto) 1 06/06/20 06:19 WBC 9.8 RBC 4.48 Hgb 14.7 Hct 43.5 MCV 97 MCH 32.8 MCHC 33.8 RDW 15.9 H Plt Count 78 L Seg Neutrophils % 79.1 H Sodium Potassium Chloride Carbon Dioxide Anion Gap BUN Creatinine Est GFR ( Amer) Glucose Calcium Total Bilirubin AST Alkaline Phosphatase Total Protein Albumin Urine Color Urine Appearance Urine pH Ur Specific [place] Urine Protein Urine Glucose (UA) Urine Ketones Urine Blood Urine Nitrite Ur Leukocyte Esterase Urine WBC (Auto) Urine RBC (Auto) 06/06/20 06:19 NT-Pro-B Natriuret Pep 836 H Impressions: Hip/Pelvis X-Ray 06/05/20 00:00 IMPRESSION: No acute fracture or dislocation of the right hip or pelvis. Shoulder X-Ray 06/05/20 00:00 IMPRESSION: No acute fracture or dislocation identified. Head CT 06/05/20 15:34 IMPRESSION: 1. No acute intracranial hemorrhage, mass, or evidence of acute territorial infarct. 2. Extensive intracranial atherosclerosis. EVIDENCE OF ACUTE STROKE: NO. Pelvis CT 06/05/20 16:00 IMPRESSION: 1. Acute minimally displaced intratrochanteric fracture right femur. 2. Enlarged prostate gland. Chest X-Ray 06/06/20 00:00 IMPRESSION: Cardiomegaly. Small left effusion. Vascular congestion has largely resolved. Minimal airspace disease in the left base most likely represents atelectasis. Assessment & Plan - Diagnosis (1) Intertrochanteric fracture of right femur Qualifiers: Encounter type: initial encounter Fracture type: closed Fracture alignment: nondisplaced Qualified Code(s): S72.144A - Nondisplaced intertro chanteric fracture of right femur, initial encounter for closed fracture Is this a current diagnosis for this admission?: Yes Plan: -Patient is currently being worked up for cardiac clearance, echo pending. -Pending clearance the patient is on the schedule for tomorrow for surgery. I have discussed risks and benefits with the patient and he has signed informed consent. -Ancef on-call for the OR -We will give TXA pre-and postop -Hold all chemical DVT prophylaxis at 12:00 midnight tonight -N.p.o. at midnight tonight -Bedrest, consider Cano catheter per patient comfort -Following surgery patient will be made weightbearing as tolerated to encourage out of bed as early as possible
[2020-06-06 18:24] LABS: ANION GAP 6 (5-19); BLOOD UREA NITROGEN 23 mg/dL (7-20); CALCIUM 8.5 mg/dL (8.4-10.2); CARBON DIOXIDE 28 mmol/L (22-30); CHLORIDE 101 mmol/L (98-107); GLUCOSE 165 mg/dL (75-110); POTASSIUM 4.1 mmol/L (3.6-5.0)
--- NOTE | 2020-06-06 18:48 | XCELERA REPORT ---
[address] [address] Transthoracic Echocardiogram Report Name: LINDA HUSTON Age: 70 yrs Gender: Male : 1950 Patient Status: Inpatient Patient Location: [address] [place], [place] [address]A Study Date: 06/06/2020 04:34 PM History: Pulmonary Edema Height: 73 in Weight: 278 lb BSA: 2.5 m2 Procedure: A complete two-dimensional transthoracic echocardiogram was performed (2D, M-mode, spectral and color flow Doppler). The study was technically adequate with some images being suboptimal in quality. Reason For Study: Pulmonary edema Previous Evaluation: No previous studies were available. History: Shortness of breath. CHF. Ordering Physician: DEBORAH REDDING Performed By: Ana Dorman Interpretation Summary Left ventricular systolic function is low normal. Due to the poor quality of the echocardiogram, an assessment of left ventricular ejection fraction cannot be made. Best estimate is 50-55%. The right ventricular systolic function is mild to moderately reduced. There is a trace amount of mitral regurgitation There is no aortic valve stenosis There is a trace amount of tricuspid regurgitation There is mild to moderate pulmonary hypertension by echo There is no pericardial effusion. MMode/2D Measurements & Calculations RVDd: 5.2 cm LVIDd: 5.7 cm FS: 43.4 % Ao root diam: 3.9 cm IVSd: 1.1 cm LVIDs: 3.2 cm EDV(Teich): 158.3 ml Ao root area: 12.2 cm2 LVPWd: 1.1 cm ESV(Teich): 41.3 ml LA dimension: 5.7 cm EF(Teich): 73.9 % Doppler Measurements & Calculations MV E max rodriguez: MV P1/2t max rodriguez: Ao V2 max: LV V1 max P.3 cm/sec 127.3 cm/sec 143.3 cm/sec 3.9 mmHg MV P1/2t: 41.0 msec Ao max P.2 mmHgLV V1 max: MVA(P1/2t): 5.4 cm2 99.2 cm/sec MV dec slope: 909.4 cm/sec2 MV dec time: 0.14 sec PA V2 max: TR max rodriguez: MV P1/2t-pr_phl: 92.8 cm/sec 351.6 cm/sec 41.0 msec PA max P.4 mmHg TR max P.4 mmHg Left Ventricle The left ventricle is moderately dilated. There is moderate concentric left ventricular hypertrophy. Due to the poor quality of the echocardiogram, an assessment of left ventricular ejection fraction cannot be made. Best estimate is 50-55%. Left ventricular systolic function is low normal. LV diastolic function not assessed. Regional wall motion abnormalities cannot be excluded due to limited visualization. Right Ventricle The right ventricle is mildly dilated. The right ventricular systolic function is mild to moderately reduced. Atria The right atrium is mildly dilated. The left atrium is moderately dilated. The interatrial septum is intact with no evidence for an atrial septal defect. There is no Doppler evidence for an interatrial shunt. Mitral Valve Calcified mitral apparatus. There is no mitral valve stenosis. There is a trace amount of mitral regurgitation. Aortic Valve The aortic valve is sclerotic and shows some degree of functional abnormality. The aortic valve is mildly calcified. The aortic valve opens well. There is no aortic valve stenosis. No aortic regurgitation is present. Tricuspid Valve The tricuspid valve is not well visualized, but is grossly normal. There is a trace amount of tricuspid regurgitation. There is mild to moderate pulmonary hypertension by echo. Right ventricular systolic pressure is estimated to be elevated at 50-60mmHg. Pulmonic Valve The pulmonic valve is not well visualized. There is a mild amount of pulmonic regurgitation. Great Vessels The aortic root is mildly dilated. The inferior vena cava appeared dilated and did not change with respiration (RAP > 20 mmHg). Effusions There is no pericardial effusion. : DEBORAH REDDING Anil
[2020-06-06] MEDS: ATORVASTATIN CALCIUM 10 MG TABLET PO SCH (22:00)
[2020-06-07] MEDS: CEFAZOLIN SODIUM 2 GM in DEXTROSE 5%-WATER 100 ML IV SCH ×4 (03:23→21:25)
[2020-06-07] MEDS: PANTOPRAZOLE SODIUM 40 MG TABLET.DR PO SCH (05:06)
[2020-06-07 05:44] LABS: ABSOLUTE BASOPHILS # (AUTO) 0.1 10^3/uL (0.0-0.2); ABSOLUTE EOSINOPHILS # (AUTO) 0.8 10^3/uL (0.0-0.6); ABSOLUTE LYMPHOCYTES (AUTO) 0.8 10^3/uL (0.5-4.7); ABSOLUTE MONOCYTES (AUTO) 1.1 10^3/uL (0.1-1.4); ABSOLUTE NEUT (AUTO) 9.5 10^3/uL (1.7-8.2); BASOPHILS % (AUTO) 0.7 % (0-2); EOSINOPHILS % (AUTO) 6.2 % (0-6); HEMOGLOBIN 14.8 g/dL (13.5-17.0); LYMPHOCYTES % (AUTO) 6.8 % (13-45); MEAN CORPUSCULAR HGB CONC 34.4 g/dL (32.0-36.0); MEAN CORPUSCULAR VOLUME 96 fl (80-97); RED BLOOD COUNT 4.49 10^6/uL (4.35-5.55); RED CELL DISTRIBUTION WIDTH 15.8 % (11.5-14.0); SEGMENTED NEUTROPHILS % (AUTO) 77.3 % (42-78); TOTAL CELLS COUNTED % (AUTO) 100 %; WHITE BLOOD COUNT 12.3 10^3/uL (4.0-10.5)
[2020-06-07 05:52] LABS: ALKALINE PHOSPHATASE 99 U/L (38-126); ANION GAP 6 (5-19); ASPARTATE AMINO TRANSFERASE 34 U/L (17-59); BILIRUBIN,DIRECT 0.5 mg/dL (0.0-0.4); BILIRUBIN,TOTAL 2.5 mg/dL (0.2-1.3); BLOOD UREA NITROGEN 23 mg/dL (7-20); CALCIUM 8.7 mg/dL (8.4-10.2); CARBON DIOXIDE 29 mmol/L (22-30); CHLORIDE 101 mmol/L (98-107); GLUCOSE 138 mg/dL (75-110); POTASSIUM 3.8 mmol/L (3.6-5.0); TOTAL PROTEIN 6.9 g/dL (6.3-8.2)
[2020-06-07 06:18] LABS: PLATELET COUNT 84 10^3/uL (150-450)
[2020-06-07] MEDS ORDERED: DEXTROSE 40% GEL 15 GM TUBE PO PRN ×2 (08:36)
[2020-06-07] MEDS ORDERED: GLUCAGON,HUMAN RECOMB 1 MG INJ SUBCUT PRN (08:36)
[2020-06-07] MEDS ORDERED: DEXTROSE 50%-WATER 25 GM/50 ML DISP.SYRIN IV PRN ×2 (08:36)
[2020-06-07] MEDS ORDERED: ROCURONIUM BROMIDE INJ 50 MG/5 ML VIAL IV ONE (10:28)
[2020-06-07] MEDS ORDERED: SUCCINYLCHOLINE CHLORIDE INJ 200 MG/10 ML VIAL ONE (10:28)
[2020-06-07] MEDS: AMLODIPINE BESYLATE 5 MG TABLET PO SCH (11:21)
[2020-06-07] MEDS: LOSARTAN POTASSIUM 50 MG TABLET PO SCH ×2 (11:23→21:25)
[2020-06-07] MEDS: METOPROLOL TARTRATE 50 MG TABLET PO SCH ×2 (11:24→21:25)
[2020-06-07] MEDS: ASPIRIN 81 MG TABLET, ENT COATED PO SCH (11:24)
[2020-06-07] MEDS: POTASSIUM CHLORIDE 10 MEQ TABLET.ER PO SCH (11:24)
[2020-06-07] MEDS: FERROUS SULFATE 325 MG TABLET PO SCH (11:24)
[2020-06-07] MEDS: ESCITALOPRAM OXALATE 10 MG TABLET PO SCH (11:24)
[2020-06-07] MEDS: ALLOPURINOL 300 MG TABLET PO SCH ×2 (11:25→18:09)
[2020-06-07] MEDS: FUROSEMIDE INJ/PF 40 MG/4 ML SDV IV SCH (11:26)
[2020-06-07] MEDS: DOCUSATE SODIUM 100 MG CAPSULE PO SCH (11:26)
--- NOTE | 2020-06-07 14:42 | PDOC CONSULTATION ---
Consultation Consult Date: 06/07/20 Attending physician:: ELOISA CHACON Provider Consulted: PAMELA MAGDALENO Consult reason:: Preoperative cardiovascular assessment History of Present Illness Admission Date/PCP: 06/05/20 18:05 Patient complains of: Hip pain, fall History of Present Illness: LINDA HUSTON is a 70 year old male With the following active problems 1. Coronary disease 2. CABG 2016 3. Systemic hypertension syndrome 4. Dyslipidemia 5. Atrial fibrillation 6. Long-term systemic anticoagulation 70-year-old male who had a mechanical fall and has had a hip fracture. Preoperative cardiovascular assessment is requested prior to orthopedic intervention for this fracture. Patient has had coronary artery bypass grafting performed in 2016. Since then he is done well. He does not report ischemic chest pain or dyspnea. He is able to do more than 4 mets in terms of daily activities. His current EKG shows atrial fibrillation. It appears to be rate controlled. He has been on systemic anticoagulation which has been withheld on account of surgery being anticipated. Past Medical History Cardiac Medical History: Reports: Atrial Fibrillation, Congestive Heart Failure, Hyperlipidema, Hypertension, Other - CAD, s/p CABG x4 in 2016 Pulmonary Medical History: Reports: Sleep Apnea - Patient uses CPAP EENT Medical History: Reports: None Neurological Medical History: Reports: None Endocrine Medical History: Reports: Obesity Renal/ Medical History: Reports: None Malignancy Medical History: Reports: Renal (Kidney) Cancer - S/p left nep hrectomy GI Medical History: Reports: None Musculoskeltal Medical History: Reports: Gout Psychiatric Medical History: Reports: Depression Traumatic Medical History: Reports: Other - Traumatic right hip fracture this hospitalization Hematology: Reports: None Infectious Medical History: Reports: None Past Surgical History Past Surgical History: Reports: Appendectomy, Coronary Artery Bypass Graft, Other - Left nephrectomy Social History Lives with: Family Smoking Status: Never Smoker Electronic Cigarette use?: No Frequency of Alcohol Use: None Hx Recreational Drug Use: No Drugs: None Hx Prescription Drug Abuse: No - Advance Directive Resuscitation Status: Full Code Family History Family History: Reviewed & Not Pertinent Parental Family History Reviewed: Yes - No familial illnesses Children Family History Reviewed: NA Sibling(s) Family History Reviewed.: NA Medication/Allergy Home Medications: Allopurinol [Zyloprim 300 mg Tablet] 300 mg PO BID 06/06/20 Amlodipine Besylate [Norvasc 5 mg Tablet] 5 mg PO QPM 06/06/20 Apixaban [Eliquis 5 mg Tablet] 5 mg PO Q12 06/06/20 Aspirin [Adult Low Dose Aspirin EC] 81 mg PO DAILY 06/06/20 Atorvastatin Calcium [Lipitor 10 mg Tablet] 10 mg PO QPM 06/06/20 Escitalopram Oxalate [Lexapro 10 mg Tablet] 20 mg PO DAILY 06/06/20 Ferrous Sulfate [Feosol 325 mg Tablet] 325 mg PO DAILY 06/06/20 Furosemide [Lasix 40 mg Tablet] 40 mg PO DAILY 06/06/20 Lansoprazole [Prevacid 30 mg Odt Tablet] 30 mg PO Q6AM 06/06/20 Losartan Potassium [Cozaar 50 mg Tablet] 50 mg PO Q12 06/06/20 Metoprolol Succinate [Toprol Xl 50 mg Tab.sr] 50 mg PO QAM 06/06/20 Potassium Chloride [Klor-Con 10 Meq Tablet ER] 20 meq PO QAM 06/06/20 Prazosin HCl [Minipress] 2 mg PO BID 06/06/20 Allergies/Adverse Reactions: indomethacin [From Indocin] Allergy (Unknown, Verified 06/05/20 16:12) Physical Exam Vital Signs: Temp Pulse Resp BP Pulse Ox 97.5 F 83 20 151/91 H 96 06/07/20 11:13 06/07/20 11:25 06/07/20 11:13 06/07/20 11:25 06/07/20 11:13 Intake & Output 06/06/20 06/07/20 06/08/20 06:59 06:59 06:59 Intake Total 1960 250 Output Total 550 1875 200 Balance -550 85 50 Weight 126.2 kg 126.2 kg General appearance: PRESENT: no acute distress, cooperative, well-developed, well-nourished Head exam: PRESENT: atraumatic, normocephalic Eye exam: PRESENT: conjunctiva pink, EOMI Mouth exam: PRESENT: moist Respiratory exam: PRESENT: clear to auscultation matthew, symmetrical, unlabored Cardiovascular exam: PRESENT: irregular rhythm, +S1, +S2, other - Well-healed sternotomy scar Pulses: PRESENT: normal radial pulses GI/Abdominal exam: PRESENT: soft Rectal exam: PRESENT: deferred Neurological exam: PRESENT: alert, awake, oriented to person, oriented to place, oriented to time, oriented to situation Psychiatric exam: PRESENT: appropriate affect Skin exam: PRESENT: dry, intact Results Laboratory Results: 06/07/20 05:14 06/07/20 05:14 06/06/20 06/07/20 06/07/20 17:45 05:14 05:14 WBC 12.3 H RBC 4.49 Hgb 14.8 Hct 43.0 MCV 96 MCH 33.0 MCHC 34.4 RDW 15.8 H Plt Count 84 L Seg Neutrophils % 77.3 Sodium 134.9 L 136.0 L Potassium 4.1 3.8 Chloride 101 101 Carbon Dioxide 28 29 Anion Gap 6 6 BUN 23 H 23 H Creatinine 1.03 0.97 Est GFR ( Amer) > 60 > 60 Glucose 165 H 138 H Calcium 8.5 8.7 Total Bilirubin 2.5 H AST 34 Alkaline Phosphatase 99 Total Protein 6.9 Albumin 4.0 06/06/20 06/07/20 06:19 05:14 NT-Pro-B Natriuret Pep 836 H 2400 H EKG Comments: Twelve-lead EKG. Independently reviewed by me. 06/06/2020 Atrial fibrillation with ventricular rate 93 bpm, left posterior fascicular block Transthoracic echocardiogram 06/06/2020 Left ventricular ejection fraction is low normal at 50-55 % Mild to moderate pulmonary hypertension RV function is mild to moderately reduced There is trace tricuspid regurgitation and trace mitral regurgitation There is no aortic valve stenosis Impressions: Hip/Pelvis X-Ray 06/05/20 00:00 IMPRESSION: No acute fracture or dislocation of the right hip or pelvis. Shoulder X-Ray 06/05/20 00:00 IMPRESSION: No acute fracture or dislocation identified. Head CT 06/05/20 15:34 IMPRESSION: 1. No acute intracranial hemorrhage, mass, or evidence of acute territorial infarct. 2. Extensive intracranial atherosclerosis. EVIDENCE OF ACUTE STROKE: NO. Pelvis CT 06/05/20 16:00 IMPRESSION: 1. Acute minimally displaced intratrochanteric fracture right femur. 2. Enlarged prostate gland. Chest X-Ray 06/06/20 00:00 IMPRESSION: Cardiomegaly. Small left effusion. Vascular congestion has largely resolved. Minimal airspace disease in the left base most likely represents atelectasis. Status: Imported from PACS - Right intertrochanteric fracture femur Assessment & Plan - Diagnosis (1) Atrial fibrillation Qualifiers: Atrial fibrillation type: unspecified Qualified Code(s): I48.91 - Unspecified atrial fibrillation Is this a current diagnosis for this admission?: Yes Plan: Rate controlled atrial fibrillation Systemic anticoagulation can be interrupted for planned surgical procedure but should be resumed as soon as feasible. (2) CAD (coronary artery disease) Is this a current diagnosis for this admission?: Yes Plan: Status post CABG No ischemic symptoms Able to do more than 4 mets in terms of daily activities prior to fracture. Based on this further re-stratification is not necessary Echocardiogram shows preserved left ventricular ejection fraction is estimated at 50 to 55%. Should proceed with surgery with usual precautions. Continue metoprolol tartrate 50 mg twice daily Continue amlodipine 5 mg daily Continue atorvastatin 10 mg daily Aspirin 81 mg daily (3) HTN (hypertension) Is this a current diagnosis for this admission?: Yes Plan: Continue amlodipine Continue metoprolol No added salt in the diet Watch blood pressure perioperatively. - Notes Notes: In my assessment patient has good functional capacity and no ischemic symptoms ever since having had bypass surgery done His echocardiogram shows preserved ejection fraction with some component of RV dysfunction which is a reflection of perhaps longstanding pulmonary arterial hypertension which is mild to moderate at best. Would recommend proceeding with surgery Systemic anticoagulation can be interrupted but should be resumed soon as feasible on account of atrial fibrillation. Rate control strategy for atrial fibrillation.
[2020-06-07] MEDS ORDERED: TRANEXAMIC ACID INJ/PF 1,000 MG/10 ML SDV ONE (15:59)
[2020-06-07] MEDS ORDERED: FENTANYL CITRATE INJ/PF 100 MCG/2 ML AMPUL ONE (16:00)
[2020-06-07] MEDS ORDERED: MIDAZOLAM 2 MG/2 ML INJ ONE (16:01)
[2020-06-07] MEDS ORDERED: PROPOFOL INJ 200 MG/20 ML VIAL IV ONE (16:01)
[2020-06-07] MEDS ORDERED: ONDANSETRON HCL INJ/PF 4 MG/2 ML SDV ONE (16:01)
[2020-06-07] MEDS ORDERED: MORPHINE SULFATE 10 MG/ML INJ ONE (16:01)
[2020-06-07] MEDS ORDERED: CEFAZOLIN INJ 1 GM VIAL ONE (17:47)
--- NOTE | 2020-06-07 18:04 | PDOC PROGRESS REPORT ---
Subjective Progress Note for:: 06/07/20 Subjective:: Patient states that he feels well today. Just having pain in his right hip. Denies any shortness of breath or chest pains. Denies any palpitations. Reason For Visit: RIGHT HIP FRACTURE Physical Exam Vital Signs: Temp Pulse Resp BP Pulse Ox 98.0 F 72 19 135/87 H 93 06/07/20 15:14 06/07/20 15:14 06/07/20 15:14 06/07/20 15:14 06/07/20 15:14 Intake & Output 06/06/20 06/07/20 06/08/20 06:59 06:59 06:59 Intake Total 1960 250 Output Total 550 1875 200 Balance -550 85 50 Weight 126.2 kg 126.2 kg General appearance: PRESENT: no acute distress, cooperative Neck exam: ABSENT: JVD Respiratory exam: PRESENT: clear to auscultation matthew, unlabored. ABSENT: t achypnea, wheezes Cardiovascular exam: PRESENT: RRR, +S1, +S2. ABSENT: tachycardia GI/Abdominal exam: PRESENT: soft. ABSENT: rebound, rigid, tenderness Extremities exam: PRESENT: other - Tenderness of palpation of the proximal right lower extremity. Neurological exam: PRESENT: alert, awake, oriented to person, oriented to place, oriented to time Results Laboratory Results: 06/07/20 05:14 06/07/20 05:14 06/06/20 06/07/20 06/07/20 17:45 05:14 05:14 WBC 12.3 H RBC 4.49 Hgb 14.8 Hct 43.0 MCV 96 MCH 33.0 MCHC 34.4 RDW 15.8 H Plt Count 84 L Seg Neutrophils % 77.3 Sodium 134.9 L 136.0 L Potassium 4.1 3.8 Chloride 101 101 Carbon Dioxide 28 29 Anion Gap 6 6 BUN 23 H 23 H Creatinine 1.03 0.97 Est GFR ( Amer) > 60 > 60 Glucose 165 H 138 H Calcium 8.5 8.7 Total Bilirubin 2.5 H AST 34 Alkaline Phosphatase 99 Total Protein 6.9 Albumin 4.0 06/06/20 06/07/20 06:19 05:14 NT-Pro-B Natriuret Pep 836 H 2400 H Impressions: Hip/Pelvis X-Ray 06/05/20 00:00 IMPRESSION: No acute fracture or dislocation of the right hip or pelvis. Shoulder X-Ray 06/05/20 00:00 IMPRESSION: No acute fracture or dislocation identified. Head CT 06/05/20 15:34 IMPRESSION: 1. No acute intracranial hemorrhage, mass, or evidence of acute territorial infarct. 2. Extensive intracranial atherosclerosis. EVIDENCE OF ACUTE STROKE: NO. Pelvis CT 06/05/20 16:00 IMPRESSION: 1. Acute minimally displaced intratrochanteric fracture right femur. 2. Enlarged prostate gland. Chest X-Ray 06/06/20 00:00 IMPRESSION: Cardiomegaly. Small left effusion. Vascular congestion has largely resolved. Minimal airspace disease in the left base most likely represents atelectasis. Assessment and Plan - Diagnosis (1) Intertrochanteric fracture of right femur Qualifiers: Encounter type: initial encounter Fracture type: closed Fracture alignment: nondisplaced Qualified Code(s): S72.144A - Nondisplaced inte rtrochanteric fracture of right femur, initial encounter for closed fracture Is this a current diagnosis for this admission?: Yes Plan: Patient was evaluated by jewel bearing turner this morning who states that patient is an acceptable risk for surgery. Patient is scheduled to go to the OR this evening Dr. Hong following Pain control as needed Subsequently will need PT and OT (2) CAD (coronary artery disease) Is this a current diagnosis for this admission?: Yes Plan: Patient s/p CABG x4 in 2015. Currently stable. Continue home regimen. (3) Pulmonary edema Qualifiers: Chronicity: acute Qualified Code(s): J81.0 - Acute pulmonary edema Is this a current diagnosis for this admission?: Yes Plan: CXR from 06/05/1960 reveals pulmonary edema Likely secondary to acute on chronic diastolic CHF. Echocardiogram shows LV hypertrophy, EF of 50%, diastology could not be assessed. Noted to have mild to moderate pulmonary hypertension with RVSP of 50 to 60 mmHg on echo. Patient received diuresis with IV Lasix yesterday. We will continue daily dosing. His lungs do sound clear on auscultation today. Monitor electrolytes. (4) Dyslipidemia Is this a current diagnosis for this admission?: Yes Plan: Continue atorvastatin 10 mg p.o. daily (5) HTN (hypertension) Is this a current diagnosis for this admission?: Yes Plan: Adequate BP control Continue amlodipine 5 mg p.o. daily Continue metoprolol tartrate 50 mg p.o. twice daily Continue losartan 50 mg p.o. twice daily Patient takes prazosin 2 mg p.o. twice daily which is nonformulary, will hold off a livia at this time (6) Atrial fibrillation Qualifiers: Atrial fibrillation type: unspecified Qualified Code(s): I48.91 - Unspecified atrial fibrillation Is this a current diagnosis for this admission?: Yes Plan: Undetermined if persistent or paroxysmal. Continue metoprolol. Will resume Eliquis after surgery. - Time Time Spent with patient: Less than 15 minutes
[2020-06-07] MEDS ORDERED: FENTANYL CITRATE INJ/PF 100 MCG/2 ML AMPUL IV PRN ×3 (18:34)
[2020-06-07] MEDS ORDERED: OXYCODONE-ACETAMINOPHEN 5-325 MG TABLET PO PRN ×2 (18:34)
[2020-06-07] MEDS ORDERED: ONDANSETRON HCL INJ/PF 4 MG/2 ML SDV IV PRN (18:34)
[2020-06-07] MEDS ORDERED: PROMETHAZINE HCL INJ 25 MG/1 ML VIAL IV PRN (18:34)
[2020-06-07] MEDS ORDERED: MORPHINE SULFATE 10 MG/ML INJ IV PRN (18:34)
[2020-06-07] MEDS ORDERED: MEPERIDINE HCL/PF INJ 25 MG/1 ML DISP.SYRIN IV PRN (18:34)
[2020-06-07] MEDS ORDERED: DIPHENHYDRAMINE HCL 50 MG/ML VIAL IV PRN (18:34)
[2020-06-07] MEDS ORDERED: LIDOCAINE 1% INJ-PF (10 MG/ML) 30 ML SDV ONE (19:10)
[2020-06-07] MEDS ORDERED: KETOROLAC TROMETHAMINE INJ/PF 30 MG/1 ML SDV ONE (19:10)
[2020-06-07] MEDS ORDERED: BUPIVACAINE HCL 0.25 % INJ/PF (2.5 MG/1 ML) 30 ML VIAL ONE (19:10)
--- NOTE | 2020-06-07 19:39 | Operative Report ---
Operative Report DATE OF SURGERY: 06/07/20 PREOPERATIVE DIAGNOSIS: Right intertrochanteric fracture POSTOPERATIVE DIAGNOSIS: Right intertrochanteric fracture OPERATION: Right sliding hip screw SURGEON: VIKA BARONE JR ANESTHESIA: GA COMPLICATIONS: None PROCEDURE: DESCRIPTION OF OPERATION: The patient was brought to the operating room where general anesthetic was administered. Once the patient was comfortable, they was transferred over to the fracture table. A Cano catheter was present at the time prior to operation. IV antibiotics were administered preoperatively, to g of Ancef. The patient was secured onto the fracture table with a boot on the operative leg in a well leg perez. A perineal post had been placed. The left lower extremity was secured down and longitudinal traction applied through the post. C-arm fluoroscopy was then brought in to check fracture alignment, and with adjustments we obtained near anatomic alignment on AP and lateral views. The lateral hip region was then prepped and draped out in the usual sterile fashion. An appropriate timeout was performed. A wire was utilized with fluoroscopy to localize the trajectory of the hip pen. Based off of this a line was drawn to represent the neck angle and are lateral incision was planned. The lateral incision was made followed by Bovie cautery of superficial bleeding. The lateral fascia was approached and dissected with cautery. After this blunt dissection was carried through the deep muscle to bone. The angle guide was placed onto bone and a pin was placed through this and checked with fluoroscopy. The femur was then drilled until we had the appropriate trajectory of the pin at the center of the head on 2 views. We measured this out to be 115 mm. We then reamed to 10 less with a combination reamer and a long barrel. The 100 mm screw was then inserted. Due to the estimated angle we went with a 133 degree plate. A 2 hole plate was selected along with appropriate sized head screw. This was inserted with the assistance of fluoroscopy followed by impaction of the plate against the bone. We then drilled and placed the 2 screws in the plate. Appropriate positioning was confirmed with AP and lateral fluoroscopy. A compression screw was applied to the head screw and then final fluoroscopy's were taken. All the wounds were then copiously irrigated.. The fascial layer was closed with 2-0 Monocryl in a running fashion. Subcutaneous tissue was closed with running barbed 2 -0 Monocryl, and the skin was closed with a running 3-0 Monocryl. A silver lined dressing was placed followed by OpSite dressing. The patient was then carefully transferred off the fracture table onto his hospital bed. The patient tolerated the procedure well and was brought to the recovery room in stable condition.
--- NOTE | 2020-06-07 19:53 | PDOC PROGRESS REPORT ---
Subjective Progress Note for:: 06/07/20 Subjective:: Patient seen and evaluated in the PACU. Doing well status post right hip screw. Awakening anesthesia at this time. No other interval symptoms. Reason For Visit: RIGHT HIP FRACTURE Physical Exam Vital Signs: Temp Pulse Resp BP Pulse Ox 98.0 F 72 19 135/87 H 93 06/07/20 15:14 06/07/20 15:14 06/07/20 15:14 06/07/20 15:14 06/07/20 15:14 Intake & Output 06/06/20 06/07/20 06/08/20 06:59 06:59 06:59 Intake Total 1960 550 Output Total 550 1875 200 Balance -550 85 350 Weight 126.2 kg 126.2 kg Physical Exam: No acute distress, currently waking from anesthesia Right lower extremity -Pulses 2+ distally -Compartments soft -Sensation grossly intact to L3-4-5 S1 -Motor grossly intact to EHL TA gastroc and quad -Wound clean dry and intact Results Laboratory Results: 06/07/20 05:14 06/07/20 05:14 06/07/20 06/07/20 05:14 05:14 WBC 12.3 H RBC 4.49 Hgb 14.8 Hct 43.0 MCV 96 MCH 33.0 MCHC 34.4 RDW 15.8 H Plt Count 84 L Seg Neutrophils % 77.3 Sodium 136.0 L Potassium 3.8 Chloride 101 Carbon Dioxide 29 Anion Gap 6 BUN 23 H Creatinine 0.97 Est GFR ( Amer) > 60 Glucose 138 H Calcium 8.7 Total Bilirubin 2.5 H AST 34 Alkaline Phosphatase 99 Total Protein 6.9 Albumin 4.0 06/06/20 06/07/20 06:19 05:14 NT-Pro-B Natriuret Pep 836 H 2400 H Impressions: Shoulder X-Ray 06/05/20 00:00 IMPRESSION: No acute fracture or dislocation identified. Head CT 06/05/20 15:34 IMPRESSION: 1. No acute intracranial hemorrhage, mass, or evidence of acute territorial infarct. 2. Extensive intracranial atherosclerosis. EVIDENCE OF ACUTE STROKE: NO. Pelvis CT 06/05/20 16:00 IMPRESSION: 1. Acute minimally displaced intratrochanteric fracture right femur. 2. Enlarged prostate gland. Chest X-Ray 06/06/20 00:00 IMPRESSION: Cardiomegaly. Small left effusion. Vascular congestion has largely resolved. Minimal airspace disease in the left base most likely represents atelectasis. Assessment & Plan - Diagnosis (1) Intertrochanteric fracture of right femur Qualifiers: Encounter type: initial encounter Fracture type: closed Fracture alignment: nondisplaced Qualified Code(s): S72.144A - Nondisplaced intertrochanteric fracture of right femur, initial encounter for closed fracture Is this a current diagnosis for this admission?: Yes Plan: -Bearing as tolerated right lower extremity -School therapy evaluation -Ancef 3 g every 8 hours 2 doses postop for 24-hour coverage -Dressing change as needed -Multimodal pain control suggested to include gabapentin and tramadol acetaminophen and potentially Celebrex. -DVT prophylaxis per hospitalist, may resume Eliquis tomorrow -Follow-up in my office in 2 weeks - Time Time Spent with patient: Less than 15 minutes
--- NOTE | 2020-06-07 20:40 | RADIOLOGY REPORT (SQ) ---
CLINICAL INDICATION: post operative. Femoral fracture. TECHNIQUE: 2 view(s) were obtained of the right hip. Single AP pelvis COMPARISON: June 05, 2020. FINDINGS: Right femoral fracture is again identified. A dynamic screw is some was identified stabilizing a fracture. Alignment is anatomic. Age-appropriate osteoarthritis. Vascular calcification. IMPRESSION: Satisfactory appearance, postop.
[2020-06-07] MEDS: ATORVASTATIN CALCIUM 10 MG TABLET PO SCH (21:25)
[2020-06-07] MEDS: OXYCODONE-ACETAMINOPHEN 5-325 MG TABLET PO PRN (21:30)
[2020-06-08] MEDS ORDERED: CEFAZOLIN SODIUM 3 GM in DEXTROSE 5%-WATER 100 ML IV SCH ×2 (02:30→14:00)
[2020-06-08] MEDS: CEFAZOLIN SODIUM 2 GM in DEXTROSE 5%-WATER 100 ML IV SCH (05:20)
[2020-06-08] MEDS: OXYCODONE-ACETAMINOPHEN 5-325 MG TABLET PO PRN (05:24)
[2020-06-08] MEDS: PANTOPRAZOLE SODIUM 40 MG TABLET.DR PO SCH (05:24)
[2020-06-08 06:45] LABS: ABSOLUTE BASOPHILS # (AUTO) 0.1 10^3/uL (0.0-0.2); ABSOLUTE EOSINOPHILS # (AUTO) 0.7 10^3/uL (0.0-0.6); ABSOLUTE LYMPHOCYTES (AUTO) 1.2 10^3/uL (0.5-4.7); ABSOLUTE MONOCYTES (AUTO) 1.2 10^3/uL (0.1-1.4); ABSOLUTE NEUT (AUTO) 7.4 10^3/uL (1.7-8.2); BASOPHILS % (AUTO) 1.1 % (0-2); EOSINOPHILS % (AUTO) 6.9 % (0-6); HEMATOCRIT 40.4 % (37.9-51.0); HEMOGLOBIN 13.7 g/dL (13.5-17.0); LYMPHOCYTES % (AUTO) 11.5 % (13-45); MEAN CORPUSCULAR HEMOGLOBIN 32.7 pg (27.0-33.4); MEAN CORPUSCULAR VOLUME 96 fl (80-97); MONOCYTES % (AUTO) 11.5 % (3-13); RED BLOOD COUNT 4.19 10^6/uL (4.35-5.55); RED CELL DISTRIBUTION WIDTH 15.6 % (11.5-14.0); TOTAL CELLS COUNTED % (AUTO) 100 %; WHITE BLOOD COUNT 10.7 10^3/uL (4.0-10.5)
[2020-06-08 07:03] LABS: ANION GAP 7 (5-19); BLOOD UREA NITROGEN 32 mg/dL (7-20); CALCIUM 8.3 mg/dL (8.4-10.2); CARBON DIOXIDE 32 mmol/L (22-30); CHLORIDE 99 mmol/L (98-107); GLUCOSE 130 mg/dL (75-110); POTASSIUM 3.6 mmol/L (3.6-5.0)
[2020-06-08 07:14] LABS: PLATELET COUNT 93 10^3/uL (150-450)
--- NOTE | 2020-06-08 09:28 | RADIOLOGY REPORT (SQ) ---
EXAM DESCRIPTION: NO CHG FLUORO; HIP RIGHT AP/LATERAL IMAGES COMPLETED DATE/TIME: 06/07/2020 7:30 pm; 06/07/2020 7:31 pm REASON FOR STUDY: ORIF RT HIP COMPARISON: None. FLUOROSCOPY TIME: 1.3 min 5 images saved to PACS. TECHNIQUE: Intra-operative images acquired during surgical procedure to evaluate progress. NUMBER OF IMAGES: 5 LIMITATIONS: None. FINDINGS: Intraoperative fluoroscopic images obtained demonstrate evidence of right femur intramedul eloise teresa fixation. Please see operative report for detailed description. IMPRESSION: IMAGE(S) OBTAINED DURING PROCEDURE. COMMENT: Quality ID [id number]: Final reports for procedures using fluoroscopy that document radiation exp osure indices, or exposure time and number of fluorographic images (if radiation exposure indices are not available) Please consult full operative report of the attending physician for description of the procedure. TECHNICAL DOCUMENTATION: JOB ID: [id number] 2010 [employer]- All Rights Reserved Reading location - IP/workstation name: [email or web address]
--- NOTE | 2020-06-08 09:28 | RADIOLOGY REPORT (SQ) ---
EXAM DESCRIPTION: NO CHG FLUORO; HIP RIGHT AP/LATERAL IMAGES COMPLETED DATE/TIME: 06/07/2020 7:30 pm; 06/07/2020 7:31 pm REASON FOR STUDY: ORIF RT HIP COMPARISON: None. FLUOROSCOPY TIME: 1.3 min 5 images saved to PACS. TECHNIQUE: Intra-operative images acquired during surgical procedure to evaluate progress. NUMBER OF IMAGES: 5 LIMITATIONS: None. FINDINGS: Intraoperative fluoroscopic images obtained demonstrate evidence of right femur intramedul leoise teresa fixation. Please see operative report for detailed description. IMPRESSION: IMAGE(S) OBTAINED DURING PROCEDURE. COMMENT: Quality ID [id number]: Final reports for procedures using fluoroscopy that document radiation exp osure indices, or exposure time and number of fluorographic images (if radiation exposure indices are not available) Please consult full operative report of the attending physician for description of the procedure. TECHNICAL DOCUMENTATION: JOB ID: [id number] 2010 [employer]- All Rights Reserved Reading location - IP/workstation name: [email or web address]
[2020-06-08] MEDS: ASPIRIN 81 MG TABLET, ENT COATED PO SCH (09:57)
[2020-06-08] MEDS: DOCUSATE SODIUM 100 MG CAPSULE PO SCH ×2 (09:57→10:06)
[2020-06-08] MEDS: ALLOPURINOL 300 MG TABLET PO SCH ×2 (09:57→17:02)
[2020-06-08] MEDS: AMLODIPINE BESYLATE 5 MG TABLET PO SCH (09:57)
[2020-06-08] MEDS: METOPROLOL TARTRATE 50 MG TABLET PO SCH ×2 (09:57→21:14)
[2020-06-08] MEDS: ESCITALOPRAM OXALATE 10 MG TABLET PO SCH (09:58)
[2020-06-08] MEDS: LOSARTAN POTASSIUM 50 MG TABLET PO SCH ×2 (09:58→21:14)
[2020-06-08] MEDS: POTASSIUM CHLORIDE 10 MEQ TABLET.ER PO SCH (09:58)
[2020-06-08] MEDS: FERROUS SULFATE 325 MG TABLET PO SCH (09:58)
[2020-06-08] MEDS: FUROSEMIDE INJ/PF 40 MG/4 ML SDV IV SCH (09:58)
--- NOTE | 2020-06-08 11:32 | RADIOLOGY REPORT (SQ) ---
EXAM DESCRIPTION: CHEST SINGLE VIEW IMAGES COMPLETED DATE/TIME: 06/08/2020 9:48 am REASON FOR STUDY: hypoxia COMPARISON: Chest radiograph, 06/06/2020 EXAM PARAMETERS: NUMBER OF VIEWS: One view. TECHNIQUE: Single frontal radiographic view of the chest acquired. RADIATION DOSE: NA LIMITATIONS: None. FINDINGS: LUNGS AND PLEURA: Small left effusion. Pleural and parenchymal scarring at the left lung base. No focal consolidation or pneumothorax. MEDIASTINUM AND HILAR STRUCTURES: No masses. Contour normal. HEART AND VASCULAR STRUCTURES: Moderate cardiomegaly. Postoperative changes in mediastinum, stable. BONES: No acute findings. HARDWARE: None in the chest. OTHER: No other significant finding. IMPRESSION: Moderate cardiomegaly with small left pleural effusion, not significantly changed. TECHNICAL DOCUMENTATION: JOB ID: [id number] 2010 [employer]- All Rights Reserved Reading location - IP/workstation name: [email or web address]
--- NOTE | 2020-06-08 13:46 | PDOC PROGRESS REPORT ---
Subjective Progress Note for:: 06/08/20 Subjective:: Patient status post right hip surgery. Bearing weight with the assistance of physical therapist. No complaints of chest pain or dyspnea. Reason For Visit: RIGHT HIP FRACTURE Physical Exam Vital Signs: Temp Pulse Resp BP Pulse Ox 98.0 F 98 18 99/62 L 94 06/08/20 11:10 06/08/20 11:10 06/08/20 11:10 06/08/20 11:10 06/08/20 11:10 Intake & Output 06/07/20 06/08/20 06/09/20 06:59 06:59 06:59 Intake Total 1960 1200 336 Output Total 1875 775 175 Balance 85 425 161 Weight 126.2 kg 126 kg General appearance: PRESENT: no acute distress, cooperative, well-developed, well-nourished Head exam: PRESENT: atraumatic, normocephalic Eye exam: PRESENT: conjunctiva pink, EOMI Ear exam: PRESENT: TM's normal bilaterally Respiratory exam: PRESENT: clear to auscultation matthew, stridor, symmetrical, unlabored Cardiovascular exam: PRESENT: irregular rhythm, +S1, +S2 GI/Abdominal exam: PRESENT: soft Rectal exam: PRESENT: deferred Neurological exam: PRESENT: alert, awake, oriented to person, oriented to place, oriented to time, reflexes normal Psychiatric exam: PRESENT: appropriate affect Focused psych exam: PRESENT: delusional Skin exam: PRESENT: dry, intact Results Laboratory Results: 06/08/20 05:58 06/08/20 05:58 06/08/20 06/08/20 05:58 05:58 WBC 10.7 H RBC 4.19 L Hgb 13.7 Hct 40.4 MCV 96 MCH 32.7 MCHC 34.0 RDW 15.6 H Plt Count 93 L Seg Neutrophils % 69.0 Sodium 138.0 Potassium 3.6 Chloride 99 Carbon Dioxide 32 H Anion Gap 7 BUN 32 H Creatinine 1.13 Est GFR ( Amer) > 60 Glucose 130 H Calcium 8.3 L Magnesium 2.1 06/06/20 06/07/20 06:19 05:14 NT-Pro-B Natriuret Pep 836 H 2400 H Impressions: Shoulder X-Ray 06/05/20 00:00 IMPRESSION: No acute fracture or dislocation identified. Head CT 06/05/20 15:34 IMPRESSION: 1. No acute intracranial hemorrhage, mass, or evidence of acute territorial infa rct. 2. Extensive intracranial atherosclerosis. EVIDENCE OF ACUTE STROKE: NO. Pelvis CT 06/05/20 16:00 IMPRESSION: 1. Acute minimally displaced intratrochanteric fracture right femur. 2. Enlarged prostate gland. Fluoroscopy 06/07/20 00:00 IMPRESSION: IMAGE(S) OBTAINED DURING PROCEDURE. Hip/Pelvis X-Ray 06/07/20 00:00 IMPRESSION: IMAGE(S) OBTAINED DURING PROCEDURE. Chest X-Ray 06/08/20 00:00 IMPRESSION: Moderate cardiomegaly with small left pleural effusion, not significantly changed. Assessment & Plan - Diagnosis (1) Atrial fibrillation Qualifiers: Atrial fibrillation type: unspecified Qualified Code(s): I48.91 - Unspecified atrial fibrillation Is this a current diagnosis for this admission?: Yes Plan: Rate control strategy Resume systemic anticoagulation later tonight if okay with orthopedic surgery. (2) CAD (coronary artery disease) Is this a current diagnosis for this admission?: Yes Plan: Status post CABG No ischemic symptoms Good functional capacity No ischemic symptoms Continue guideline directed medical therapy for coronary artery disease (3) HTN (hypertension) Is this a current diagnosis for this admission?: Yes Plan: Continue to watch blood pressure. Continue present therapy for systemic hypertension. No changes made today.
[2020-06-08] MEDS ORDERED: TRAMADOL HCL 50 MG TABLET PO PRN (16:35)
--- NOTE | 2020-06-08 16:46 | PDOC PROGRESS REPORT ---
Subjective Progress Note for:: 06/08/20 Subjective:: Patient feels well today. He denies any shortness of breath or chest pain. Actually not having much pain in his hip today at the site of the repair. Reason For Visit: RIGHT HIP FRACTURE Physical Exam Vital Signs: Temp Pulse Resp BP Pulse Ox 97.9 F 68 18 103/63 96 06/08/20 15:21 06/08/20 15:21 06/08/20 15:21 06/08/20 15:21 06/08/20 15:21 Intake & Output 06/07/20 06/08/20 06/09/20 06:59 06:59 06:59 Intake Total 1960 1200 436 Output Total 1875 775 175 Balance 85 425 261 Weight 126.2 kg 126 kg General appearance: PRESENT: no acute distress, cooperative Neck exam: ABSENT: JVD Respiratory exam: PRESENT: unlabored. ABSENT: accessory muscle use, prolonged expiratory phas, retraction, tachypnea, wheezes Cardiovascular exam: PRESENT: +S1, +S2 Extremities exam: PRESENT: other - Right hip has clean surgical site without drainage and only mild to moderate tenderness. ABSENT: calf tenderness Neurological exam: PRESENT: alert, awake Results Laboratory Results: 06/08/20 05:58 06/08/20 05:58 06/08/20 06/08/20 05:58 05:58 WBC 10.7 H RBC 4.19 L Hgb 13.7 Hct 40.4 MCV 96 MCH 32.7 MCHC 34.0 RDW 15.6 H Plt Count 93 L Seg Neutrophils % 69.0 Sodium 138.0 Potassium 3.6 Chloride 99 Carbon Dioxide 32 H Anion Gap 7 BUN 32 H Creatinine 1.13 Est GFR ( Amer) > 60 Glucose 130 H Calcium 8.3 L Magnesium 2.1 06/06/20 06/07/20 06:19 05:14 NT-Pro-B Natriuret Pep 836 H 2400 H Impressions: Shoulder X-Ray 06/05/20 00:00 IMPRESSION: No acute fracture or dislocation identified. Head CT 06/05/20 15:34 IMPRESSION: 1. No acute intracranial hemorrhage, mass, or evidence of acute territorial infarct. 2. Extensive intracranial atherosclerosis. EVIDENCE OF ACUTE STROKE: NO. Pelvis CT 06/05/20 16:00 IMPRESSION: 1. Acute minimally displaced intratrochanteric fracture right femur. 2. Enlarged prostate gland. Fluoroscopy 06/07/20 00:00 IMPRESSION: IMAGE(S) OBTAINED DURING PROCEDURE. Hip/Pelvis X-Ray 06/07/20 00:00 IMPRESSION: IMAGE(S) OBTAINED DURING PROCEDURE. Chest X-Ray 06/08/20 00:00 IMPRESSION: Moderate cardiomegaly with small left pleural effusion, not significantly changed. Assessment and Plan - Diagnosis (1) Intertrochanteric fracture of right femur Qualifiers: Encounter type: initial encounter Fracture type: closed Fracture alignment: nondisplaced Qualified Code(s): S72.144A - Nondisplaced intertrochanteric fracture of right femur, initial encounter for closed fracture Is this a current diagnosis for this admission?: Yes Plan: Taken to the OR by Dr. Hong on 06/07/2024 sliding hip screw placement. Currently on Ancef for postop prophylaxis Pain control with Tylenol, gabapentin and tramadol as recommended. Walked with physical therapy today. Ambulated 10 feet. (2) CAD (coronary artery disease) Is this a current diagnosis for this admission?: Yes Plan: Patient s/p CABG x4 in 2015. Currently stable. Continue home regimen. (3) Pulmonary edema Qualifiers: Chronicity: acute Qualified Code(s): J81.0 - Acute pulmonary edema Is this a current diagnosis for this admission?: Yes Plan: CXR from 06/05/1960 reveals pulmonary edema Likely secondary to acute on chronic diastolic CHF. Also presented with acute hypoxic respiratory failure requiring 3 to 4 L nasal cannula. Echocardiogram shows LV hypertrophy, EF of 50%, diastology could not be assessed. Noted to have mild to moderate pulmonary hypertension with RVSP of 50 to 60 mmHg on echo. Patient has been receiving diuresis with IV Lasix. I will go ahead and discontinue IV Lasix as we were able to wean patient off oxygen this afternoon with SPO2 93% on room air this afternoon. Continue p.o. Lasix 40 mg daily [home dose] (4) Dyslipidemia Is this a current diagnosis for this admission?: Yes Plan: Continue atorvastatin 10 mg p.o. daily (5) HTN (hypertension) Is this a current diagnosis for this admission?: Yes Plan: Adequate BP control Continue amlodipine 5 mg p.o. daily Continue metoprolol tartrate 50 mg p.o. twice daily Continue losartan 50 mg p.o. twice daily (6) Atrial fibrillation Qualifiers: Atrial fibrillation type: unspecified Qualified Code(s): I48.91 - Unspecified atrial fibrillation Is this a current diagnosis for this admission?: Yes Plan: Undetermined if persistent or paroxysmal. Continue metoprolol. Will resume Eliquis after surgery. (7) Nocturnal hypoxia Is this a current diagnosis for this admission?: Yes Plan: Patient states he uses about 2 L of oxygen nasal cannula at home only at nighttime. He is uncertain what particular condition this was prescribed for. Will make nasal cannula available for patient if his SPO2 drops below 89% when sleeping. - Time Time Spent with patient: Less than 15 minutes
[2020-06-08] MEDS: GABAPENTIN 100 MG CAPSULE PO SCH (21:14)
[2020-06-08] MEDS: APIXABAN 5 MG TABLET PO SCH (21:14)
[2020-06-08] MEDS: ATORVASTATIN CALCIUM 10 MG TABLET PO SCH (21:14)
[2020-06-09] MEDS: GABAPENTIN 100 MG CAPSULE PO SCH ×2 (06:41→13:50)
[2020-06-09] MEDS: PANTOPRAZOLE SODIUM 40 MG TABLET.DR PO SCH (06:41)
--- NOTE | 2020-06-09 07:24 | PDOC PROGRESS REPORT ---
Subjective Progress Note for:: 06/08/20 Subjective:: Patient is doing well today. Reports walking well with physical therapy. No overnight changes. Overall improvement and pain, he does report soreness after surgery is well controlled on current pain medication. Reason For Visit: RIGHT HIP FRACTURE Physical Exam Vital Signs: Temp Pulse Resp BP Pulse Ox 97.5 F 73 18 137/73 H 97 06/08/20 23:50 06/09/20 02:00 06/08/20 23:50 06/08/20 23:50 06/08/20 23:50 Intake & Output 06/08/20 06/09/20 06/10/20 06:59 06:59 06:59 Intake Total 1200 1254 Output Total 775 775 Balance 425 479 Weight 126 kg 126 kg Physical Exam: No acute distress alert and oriented x3 Right lower extremity -Pulses 2+ distally -Compartments soft -Sensation grossly intact to L3-4-5 S1 -Motor grossly intact to EHL TA gastroc and quad -Wound clean dry and intact Results Laboratory Results: 06/08/20 05:58 06/08/20 05:58 06/06/20 06/07/20 06:19 05:14 NT-Pro-B Natriuret Pep 836 H 2400 H Impressions: Shoulder X-Ray 06/05/20 00:00 IMPRESSION: No acute fracture or dislocation identified. Head CT 06/05/20 15:34 IMPRESSION: 1. No acute intracranial hemorrhage, mass, or evidence of acute territorial infarct. 2. Extensive intracranial atherosclerosis. EVIDENCE OF ACUTE STROKE: NO. Pelvis CT 06/05/20 16:00 IMPRESSION: 1. Acute minimally displaced intratrochanteric fracture right femur. 2. Enlarged prostate gland. Fluoroscopy 06/07/20 00:00 IMPRESSION: IMAGE(S) OBTAINED DURING PROCEDURE. Hip/Pelvis X-Ray 06/07/20 00:00 IMPRESSION: IMAGE(S) OBTAINED DURING PROCEDURE. Chest X-Ray 06/08/20 00:00 IMPRESSION: Moderate cardiomegaly with small left pleural effusion, not significantly changed. Assessment & Plan - Diagnosis (1) Intertrochanteric fracture of right femur Qualifiers: Encounter type: initial encounter Fracture type: closed Fracture alignment: nondisplaced Qualified Code(s): S72.144A - Nondisplaced intertrochanteric fracture of right femur, initial encounter for closed fracture Is this a current diagnosis for this admission?: Yes Plan: - 2 doses of Ancef postoperatively q 8 hours to complete 24 hours periop eratively -Weightbearing as tolerated, no precautions, encourage out of bed TONO for ADL training - PT/OT -DVT prophylaxis per medicine team -multimodal pain management to avoid excessive narcotics, including gabapentin, tramadol, Toradol, acetaminophen. -Dressing should not be removed for 7 to 10 days until seen in the office -May shower with the dressing intact, if it starts to come off she should not get the incision wet. -I would like to follow the patient my office within the next 7 to 10 days at [address] [place] [address]. in [place] office #: [phone] - Time Time Spent with patient: Less than 15 minutes
[2020-06-09] MEDS: ESCITALOPRAM OXALATE 10 MG TABLET PO SCH (09:33)
[2020-06-09] MEDS: ASPIRIN 81 MG TABLET, ENT COATED PO SCH (09:33)
[2020-06-09] MEDS: AMLODIPINE BESYLATE 5 MG TABLET PO SCH (09:33)
[2020-06-09] MEDS: ALLOPURINOL 300 MG TABLET PO SCH (09:33)
[2020-06-09] MEDS: LOSARTAN POTASSIUM 50 MG TABLET PO SCH (09:34)
[2020-06-09] MEDS: METOPROLOL TARTRATE 50 MG TABLET PO SCH (09:34)
[2020-06-09] MEDS: POTASSIUM CHLORIDE 10 MEQ TABLET.ER PO SCH (09:34)
[2020-06-09] MEDS: FERROUS SULFATE 325 MG TABLET PO SCH (09:35)
[2020-06-09] MEDS: APIXABAN 5 MG TABLET PO SCH (09:35)
[2020-06-09] MEDS: DOCUSATE SODIUM 100 MG CAPSULE PO SCH (09:35)
[2020-06-09] MEDS ORDERED: FUROSEMIDE 40 MG TABLET PO SCH (10:00)
--- NOTE | 2020-06-09 13:48 | PDOC DISCHARGE SUMMARY ---
Impression - Admit/DC Date/PCP Admission Date/Primary Care Provider: 06/05/20 18:05 Discharge Date: 06/09/20 - Discharge Diagnosis (1) Intertrochanteric fracture of right femur Is this a current diagnosis for this admission?: Yes (2) CAD (coronary artery disease) Is this a current diagnosis for this admission?: Yes (3) Pulmonary edema Is this a current diagnosis for this admission?: Yes (4) Dyslipidemia Is this a current diagnosis for this admission?: Yes (5) HTN (hypertension) Is this a current diagnosis for this admission?: Yes (6) Atrial fibrillation Is this a current diagnosis for this admission?: Yes (7) Nocturnal hypoxia Is this a current diagnosis for this admission?: Yes - Additional Information Resuscitation Status: Full Code Discharge Diet: Cardiac Discharge Activity: Activity As Tolerated, Slowly Increase Activity Referrals: VIKA BARONE JR, DO [ACTIVE PROVISIONAL STAFF] - 06/17/20 1:10 pm Prescriptions: Tramadol HCl [Ultram 50 mg Tablet] 50 mg PO Q6HP PRN #20 tablet PRN Reason: Home Medications: Allopurinol [Zyloprim 300 mg Tablet] 300 mg PO BID 06/06/20 Amlodipine Besylate [Norvasc 5 mg Tablet] 5 mg PO QPM 06/06/20 Apixaban [Eliquis 5 mg Tablet] 5 mg PO Q12 06/06/20 Aspirin [Adult Low Dose Aspirin EC] 81 mg PO DAILY 06/06/20 Atorvastatin Calcium [Lipitor 10 mg Tablet] 10 mg PO QPM 06/06/20 Escitalopram Oxalate [Lexapro 10 mg Tablet] 20 mg PO DAILY 06/06/20 Ferrous Sulfate [Feosol 325 mg Tablet] 325 mg PO DAILY 06/06/20 Furosemide [Lasix 40 mg Tablet] 40 mg PO DAILY 06/06/20 Lansoprazole [Prevacid 30 mg Odt Tablet] 30 mg PO Q6AM 06/06/20 Losartan Potassium [Cozaar 50 mg Tablet] 50 mg PO Q12 06/06/20 Metoprolol Succinate [Toprol Xl 50 mg Tab.sr] 50 mg PO QAM 06/06/20 Potassium Chloride [Klor-Con 10 Meq Tablet ER] 20 meq PO QAM 06/06/20 Prazosin HCl [Minipress] 2 mg PO BID 06/06/20 Tramadol HCl [Ultram 50 mg Tablet] 50 mg PO Q6HP PRN #20 tablet 06/09/20 History of Present Illiness History of Present Illness: According to admitting provider: LINDA HUSTON is a 70 year old male who is on vacation in the area. Early this morning the patient got out of bed to take a shower and while in the shower slipped and fell onto his right side hitting his head, right shoulder, and right hip. He denies any LOC. He states that he immediately noticed significant right hip pain which prevented him from being able to move for a period of several minutes. He ultimately crawled out of the shower and and notified his of his injury. With the help of his and several friends he was able to get up off of the floor. EMS was activated and the patient was brought to the ED where he underwent a CT of the head which revealed no acute intracranial process. Additionally, he underwent an x-ray of the hip/pelvis did not reveal an acute fracture or dislocation of the right hip or pelvis. Subsequently he underwent a CT of the pelvis which did reveal an acute minimally displaced intertrochanteric fracture of the right femur. A surgical consult was requested in the ED and the hospitalist team was consulted for admission. Hospital Course Hospital Course: Patient was admitted to the hospital after experiencing a fall. Upon presentation, patient received full trauma work-up with head CT, pelvic CT, chest x-ray, shoulder x-rays as well. His pelvic CT was remarkable for intratrochanteric right femur fracture. Orthopedic surgery was consulted for management. Patient was started on medication for pain control initially with IV pain meds. Given patient's history of cardiovascular disease, patient underwent an echocardiogram prior to surgery. Patient was also started on diuresis for treatment of pulmonary edema likely secondary to acute on chronic diastolic heart failure and he was noted to be hypoxic requiring 4 L of nasal cannula initially upon presentation. He was given IV Lasix for several doses and his oxygen level improved. Patient was also evaluated by cardiology who stated that patient was acceptable risk for proceeding with surgery. Patient was taken to the OR during which a right hip screw was placed. Patient did well after surgery. He worked with physical therapy yesterday and today. He has also been doing breathing treatments with incentive spirometer and receiving his Lasix. Yesterday patient was able to be off oxygen during the afternoon. This morning I checked patient's oxygen level and took him off oxygen which had been started last evening and his oxygen level was 92% after about 3 minutes on room air. Patient being discharged with incentive spirometer. Patient walked with physical therapy today and was able to ambulate about 70 feet with assistance. Given that patient is eager to go home, physical therapy recommends home health with rolling walker. I have contacted discharge planning for setting up a Rollator walker with seat. We will also try to see if we can get him a wheel chair. I have discussed with patient's several times today regarding plan of care. Patient will be sent home with some tramadol. states that upon returning home to [address] [place] [address] they can get a family member to help him get past steps. However at the [facility] that he is [facility] in the right now, there are no steps involved. Home physical therapy will be set up once to get back to [place] and this is being coordinated by our social media project manager to ensure safe discharge. Physical Exam Vital Signs: Temp Pulse Resp BP Pulse Ox 97.2 F 75 18 118/78 89 L 06/09/20 11:36 06/09/20 11:36 06/09/20 11:36 06/09/20 11:36 06/09/20 11:36 Intake & Output 06/08/20 06/09/20 06/10/20 06:59 06:59 06:59 Intake Total 1200 1254 118 Output Total 775 775 100 Balance 425 479 18 Weight 126 kg 126 kg General appearance: PRESENT: no acute distress, cooperative Neck exam: ABSENT: JVD Respiratory exam: PRESENT: clear to auscultation matthew, unlabored. ABSENT: accessory muscle use, retraction Cardiovascular exam: PRESENT: RRR, +S1, +S2. ABSENT: tachycardia GI/Abdominal exam: PRESENT: soft. ABSENT: rebound, rigid, tenderness Neurological exam: PRESENT: alert, awake, oriented to person, oriented to place, oriented to time Results Laboratory Results: WBC 10.7 10^3/uL (4.0-10.5) H 06/08/20 05:58 RBC 4.19 10^6/uL (4.35-5.55) L 06/08/20 05:58 Hgb 13.7 g/dL (13.5-17.0) 06/08/20 05:58 Hct 40.4 % (37.9-51.0) 06/08/20 05:58 MCV 96 fl (80-97) 06/08/20 05:58 MCH 32.7 pg (27.0-33.4) 06/08/20 05:58 MCHC 34.0 g/dL (32.0-36.0) 06/08/20 05:58 RDW 15.6 % (11.5-14.0) H 06/08/20 05:58 Plt Count 93 10^3/uL (150-450) L 06/08/20 05:58 Lymph % (Auto) 11.5 % (13-45) L 06/08/20 05:58 [place] % (Auto) 11.5 % (3-13) 06/08/20 05:58 Eos % (Auto) 6.9 % (0-6) H 06/08/20 05:58 Baso % (Auto) 1.1 % (0-2) 06/08/20 05:58 Absolute Neuts (auto) 7.4 10^3/uL (1.7-8.2) 06/08/20 05:58 Absolute Lymphs (auto) 1.2 10^3/uL (0.5-4.7) 06/08/20 05:58 Absolute Monos (auto) 1.2 10^3/uL (0.1-1.4) 06/08/20 05:58 Absolute Eos (auto) 0.7 10^3/uL (0.0-0.6) H 06/08/20 05:58 Absolute Basos (auto) 0.1 10^3/uL (0.0-0.2) 06/08/20 05:58 Seg Neutrophils % 69.0 % (42-78) 06/08/20 05:58 Platelet Estimate Cancelled 06/05/20 16:47 PT 16.6 SEC (11.4-15.4) H 06/06/20 06:19 INR 1.33 06/06/20 06:19 APTT 31.7 SEC (23.5-35.8) 06/06/20 06:19 Sodium 138.0 mmol/L (137-145) 06/08/20 05:58 Potassium 3.6 mmol/L (3.6-5.0) 06/08/20 05:58 Chloride 99 mmol/L (98-107) 06/08/20 05:58 Carbon Dioxide 32 mmol/L (22-30) H 06/08/20 05:58 Anion Gap 7 (5-19) 06/08/20 05:58 BUN 32 mg/dL (7-20) H 06/08/20 05:58 Creatinine 1.13 mg/dL (0.52-1.25) 06/08/20 05:58 Est GFR ( Amer) > 60 (>60) 06/08/20 05:58 Est GFR (MDRD) Non-Af > 60 (>60) 06/08/20 05:58 Glucose 130 mg/dL (75-110) H 06/08/20 05:58 Hemoglobin A1c % 5.9 % (4.7-6.0) 06/06/20 06:19 Calcium 8.3 mg/dL (8.4-10.2) L 06/08/20 05:58 Magnesium 2.1 mg/dL (1.6-2.3) 06/08/20 05:58 Total Bilirubin 2.5 mg/dL (0.2-1.3) H 06/07/20 05:14 Direct Bilirubin 0.5 mg/dL (0.0-0.4) H 06/07/20 05:14 Neonat Total Bilirubin Not Reportable 06/07/20 05:14 Neonat Direct Bilirubin Not Reportable 06/07/20 05:14 Neonat Indirect Bili Not Reportable 06/07/20 05:14 AST 34 U/L (17-59) 06/07/20 05:14 ALT 21 U/L (<50) 06/07/20 05:14 Alkaline Phosphatase 99 U/L (38-126) 06/07/20 05:14 NT-Pro-B Natriuret Pep 2400 pg/mL (<125) H 06/07/20 05:14 Total Protein 6.9 g/dL (6.3-8.2) 06/07/20 05:14 Albumin 4.0 g/dL (3.5-5.0) 06/07/20 05:14 Urine Color DARK YELLOW 06/05/20 20:24 Urine Appearance CLEAR 06/05/20 20:24 Urine pH 5.0 (5.0-9.0) 06/05/20 20:24 Ur Specific [place] 1.024 06/05/20 20:24 Urine Protein 100 mg/dL (NEGATIVE) H 06/05/20 20:24 Urine Glucose (UA) NEGATIVE mg/dL (NEGATIVE) 06/05/20 20:24 Urine Ketones NEGATIVE mg/dL (NEGATIVE) 06/05/20 20:24 Urine Blood NEGATIVE (NEGATIVE) 06/05/20 20:24 Urine Nitrite NEGATIVE (NEGATIVE) 06/05/20 20:24 Urine Bilirubin NEGATIVE (NEGATIVE) 06/05/20 20:24 Urine Urobilinogen 4.0 mg/dL (<2.0) H 06/05/20 20:24 Ur Leukocyte Esterase NEGATIVE (NEGATIVE) 06/05/20 20:24 Urine WBC (Auto) 0 /HPF 06/05/20 20:24 Urine RBC (Auto) 1 /HPF 06/05/20 20:24 Squamous Epi Cells Auto <1 /HPF 06/05/20 20:24 Urine Mucus (Auto) OCC /LPF 06/05/20 20:24 Urine Ascorbic Acid NEGATIVE (NEGATIVE) 06/05/20 20:24 SARS-CoV-2 (PCR) NEGATIVE (NEGATIVE) 06/05/20 17:28 Slides for Path Review Cancelled 06/05/20 16:47 06/06/20 06/07/20 06:19 05:14 NT-Pro-B Natriuret Pep 836 H 2400 H Impressions: Hip/Pelvis X-Ray 06/05/20 00:00 IMPRESSION: No acute fracture or dislocation of the right hip or pelvis. Shoulder X-Ray 06/05/20 00:00 IMPRESSION: No acute fracture or dislocation identified. Chest X-Ray 06/05/20 15:33 IMPRESSION: Moderate pulmonary edema. Small left effusion. Head CT 06/05/20 15:34 IMPRESSION: 1. No acute intracranial hemorrhage, mass, or evidence of acute territorial infarct. 2. Extensive intracranial atherosclerosis. EVIDENCE OF ACUTE STROKE: NO. Pelvis CT 06/05/20 16:00 IMPRESSION: 1. Acute minimally displaced intratrochanteric fracture right femur. 2. Enlarged prostate gland. Chest X-Ray 06/06/20 00:00 IMPRESSION: Cardiomegaly. Small left effusion. Vascular congestion has largely resolved. Minimal airspace disease in the left base most likely represents atelectasis. Fluoroscopy 06/07/20 00:00 IMPRESSION: IMAGE(S) OBTAINED DURING PROCEDURE. Hip/Pelvis X-Ray 06/07/20 00:00 IMPRESSION: IMAGE(S) OBTAINED DURING PROCEDURE. Hip/Pelvis X-Ray 06/07/20 00:00 IMPRESSION: Satisfactory appearance, postop. Chest X-Ray 06/08/20 00:00 IMPRESSION: Moderate cardiomegaly with small left pleural effusion, not significantly changed. Plan Time Spent: Greater than 30 Minutes Stroke Is this a Stroke Patient?: No Acute Heart Failure - Is this a Heart Failure Patient?: Yes Documentation of LVEF assessment?: Yes LVEF: LVEF Greater Than 40% Anticoagulant Therapy: Yes
[2020-06-09 14:46] VITALS: BP 151/91
--- NOTE | 2020-06-09 15:48 | PDOC PROGRESS REPORT ---
Subjective Progress Note for:: 06/09/20 Subjective:: Patient doing well. Walking with physical therapy. Reports improved pain. Pain currently controlled with current pain medication. Reason For Visit: RIGHT HIP FRACTURE Physical Exam Vital Signs: Temp Pulse Resp BP Pulse Ox 97.2 F 75 18 151/91 H 89 L 06/09/20 14:44 06/09/20 14:44 06/09/20 14:44 06/09/20 14:44 06/09/20 14:44 Intake & Output 06/08/20 06/09/20 06/10/20 06:59 06:59 06:59 Intake Total 1200 1254 118 Output Total 775 775 100 Balance 425 479 18 Weight 126 kg 126 kg Physical Exam: General appearance: PRESENT: no acute distress, cooperative, well-nourished Head exam: PRESENT: atraumatic, normocephalic Eye exam: PRESENT: EOMI Ear exam: PRESENT: normal external ear exam Mouth exam: PRESENT: neck supple Neck exam: ABSENT: tracheal deviation Respiratory exam: PRESENT: symmetrical, unlabored. ABSENT: accessory muscle use, wheezes Pulses: PRESENT: normal radial pulses, normal dorsalis pedis pulse Vascular exam: PRESENT: normal capillary refill GI/Abdominal exam: ABSENT: distended, firm Extremities exam: PRESENT: full ROM of bilateral shoulders, elbows wrists, knees, hips and ankles without pain Musculoskeletal exam: PRESENT: full ROM, normal inspection of all 4 extremities aside from that noted below. Neurological exam: PRESENT: alert, awake, oriented to person, oriented to place, oriented to time Psychiatric exam: PRESENT: appropriate affect. ABSENT: agitated Focused psych exam: ABSENT: catatonic Skin exam: PRESENT: intact. ABSENT: dry All as above aside from that noted in the HPI and the following: Right lower extremity -Pulses 2+ distally -Compartments soft -Sensation grossly intact to L3-4-5 S1 -Motor grossly intact to EHL TA gastroc and quad -Wound clean dry and intact Results Laboratory Results: 06/08/20 05:58 06/08/20 05:58 06/06/20 06/07/20 06:19 05:14 NT-Pro-B Natriuret Pep 836 H 2400 H Impressions: Shoulder X-Ray 06/05/20 00:00 IMPRESSION: No acute fracture or dislocation identified. Head CT 06/05/20 15:34 IMPRESSION: 1. No acute intracranial hemorrhage, mass, or evidence of acute territorial infarct. 2. Extensive intracranial atherosclerosis. EVIDENCE OF ACUTE STROKE: NO. Pelvis CT 06/05/20 16:00 IMPRESSION: 1. Acute minimally displaced intratrochanteric fracture right femur. 2. Enlarged prostate gland. Fluoroscopy 06/07/20 00:00 IMPRESSION: IMAGE(S) OBTAINED DURING PROCEDURE. Hip/Pelvis X-Ray 06/07/20 00:00 IMPRESSION: IMAGE(S) OBTAINED DURING PROCEDURE. Chest X-Ray 06/08/20 00:00 IMPRESSION: Moderate cardiomegaly with small left pleural effusion, not significantly changed. Assessment & Plan - Diagnosis (1) Intertrochanteric fracture of right femur Qualifiers: Encounter type: initial encounter Fracture type: closed Fracture alignment: nondisplaced Qualified Code(s): S72.144A - Nondisplaced intertrochanteric fracture of right femur, initial encounter for closed fracture Is this a current diagnosis for this admission?: Yes Plan: - 2 doses of Ancef postoperatively q 8 hours to complete 24 hours perioperatively -Weightbearing as tolerated, no precautions, encourage out of bed [facility] for ADL training - PT/OT -DVT prophylaxis per primary team -multimodal pain management to avoid excessive narcotics, including gabapentin, tramadol, Toradol, acetaminophen. -Dressing should not be removed for 7 to 10 days until seen in the office -No restrictions -May shower with the dressing intact, if it starts to come off she should not get the incision wet. -I would like to follow the patient my office within the next 14-[address] [place] [address]. in [place] office #: [phone] - Time Time Spent with patient: Less than 15 minutes
--- NOTE | 2020-06-09 18:05 | PDOC PROGRESS REPORT ---
Subjective Progress Note for:: 06/09/20 Subjective:: Doing well. No complaints. Participating in PT/OT post surgery Right hip Reason For Visit: RIGHT HIP FRACTURE Physical Exam Vital Signs: Temp Pulse Resp BP Pulse Ox 97.2 F 75 18 151/91 H 89 L 06/09/20 14:44 06/09/20 14:44 06/09/20 14:44 06/09/20 14:44 06/09/20 14:44 Intake & Output 06/08/20 06/09/20 06/10/20 06:59 06:59 06:59 Intake Total 1200 1254 118 Output Total 775 775 100 Balance 425 479 18 Weight 126 kg 126 kg General appearance: PRESENT: no acute distress, cooperative, well-developed, well-nourished Head exam: PRESENT: atraumatic, normocephalic Eye exam: PRESENT: EOMI Mouth exam: PRESENT: moist Respiratory exam: PRESENT: clear to auscultation matthew, symmetrical, unlabored Cardiovascular exam: PRESENT: irregular rhythm, +S1, +S2 - Healed sternotomy Pulses: PRESENT: normal radial pulses GI/Abdominal exam: PRESENT: soft Rectal exam: PRESENT: deferred Neurological exam: PRESENT: alert, awake, oriented to person, oriented to place, oriented to time, oriented to situation Psychiatric exam: PRESENT: appropriate affect Skin exam: PRESENT: dry, intact Results Laboratory Results: 06/08/20 05:58 06/08/20 05:58 06/06/20 06/07/20 06:19 05:14 NT-Pro-B Natriuret Pep 836 H 2400 H Impressions: Shoulder X-Ray 06/05/20 00:00 IMPRESSION: No acute fracture or dislocation identified. Head CT 06/05/20 15:34 IMPRESSION: 1. No acute intracranial hemorrhage, mass, or evidence of acute territorial infarct. 2. Extensive intracranial atherosclerosis. EVIDENCE OF ACUTE STROKE: NO. Pelvis CT 06/05/20 16:00 IMPRESSION: 1. Acute minimally displaced intratrochanteric fracture right femur. 2. Enlarged prostate gland. Fluoroscopy 06/07/20 00:00 IMPRESSION: IMAGE(S) OBTAINED DURING PROCEDURE. Hip/Pelvis X-Ray 06/07/20 00:00 IMPRESSION: IMAGE(S) OBTAINED DURING PROCEDURE. Chest X-Ray 06/08/20 00:00 IMPRESSION: Moderate cardiomegaly with small left pleural effusion, not significantly changed. Assessment & Plan - Diagnosis (1) Atrial fibrillation Qualifiers: Atrial fibrillation type: unspecified Qualified Code(s): I48.91 - Unspecified atrial fibrillation Is this a current diagnosis for this admission?: Yes Plan: Rate control strategy Systemic anticoagulation has been resumed (2) CAD (coronary artery disease) Is this a current diagnosis for this admission?: Yes Plan: Status post CABG No ischemic symptoms Good functional capacity No ischemic symptoms Continue guideline directed medical therapy for coronary artery disease (3) HTN (hypertension) Is this a current diagnosis for this admission?: Yes Plan: Continue to watch blood pressure. Continue present therapy for systemic hypertension. No changes made today.
== END 2020-06-09 18:11 | disposition home health service (06) | DRG 480 ==
LOC: ER 15:12 → EH 18:05 → OBSVTOIN 18:05 → 4S 20:08
PROVIDERS: ADMIT Hospitalist; ATTEND Internal Medicine
PROC: 5A09457 Assistance with Respiratory Ventilation, 24-96 Consecutive Hours, Continuous Positive Airway Pressure (ICD-10-PCS; 2020-06-05)
PROC: 0QS634Z Reposition Right Upper Femur with Internal Fixation Device, Percutaneous Approach (ICD-10-PCS; principal; 2020-06-07 16:00)
DX: S72.141A Displaced intertrochanteric fracture of right femur, initial encounter for closed fracture (principal); I50.33 Acute on chronic diastolic (congestive) heart failure; I11.0 Hypertensive heart disease with heart failure; I25.10 Atherosclerotic heart disease of native coronary artery without angina pectoris; E78.5 Hyperlipidemia, unspecified; S00.03XA Contusion of scalp, initial encounter; W18.2XXA Fall in (into) shower or empty bathtub, initial encounter; M25.511 Pain in right shoulder; Y92.002 Bathroom of unspecified non-institutional (private) residence as the place of occurrence of the external cause; E66.9 Obesity, unspecified; I48.91 Unspecified atrial fibrillation; M10.9 Gout, unspecified; F32.9 Major depressive disorder, single episode, unspecified; G47.33 Obstructive sleep apnea (adult) (pediatric); Z79.899 Other long term (current) drug therapy; Z95.1 Presence of aortocoronary bypass graft; Z79.01 Long term (current) use of anticoagulants; Z90.5 Acquired absence of kidney; Z88.8 Allergy status to other drugs, medicaments and biological substances; Z87.891 Personal history of nicotine dependence; Z11.59 Encounter for screening for other viral diseases
CPT/HCPCS: 01230; 36415; 70450; 71045; 72192; 80048; 80053; 81001; 83036; 83735; 83880; 85025; 85610; 85730; 87635; 93005; 93010; 93306; 94660; 94799; 96374; 96375; 99285; C1713; C1769; C9803; J0330; J0690; J1885; J1940; J2250; J2270; J2405; J2704; J3010; J3490; J7060